=== PATIENT | female | born 1980 | race Caucasian/White ===

== ENCOUNTER → 2023-09-29 11:03 | Outpatient (BNVA) | payer SELFPAY | PROVIDERS: Visit Provider Registered Nurse Neonatal Intensive Care | DX: J02.9 Acute pharyngitis, unspecified (principal) | CPT/HCPCS: 87880 ==

== ENCOUNTER 2023-10-12 21:20 | Emergency (ER) | payer MEDICARE, SELFPAY ==
[2023-10-12 21:21] VITALS: BP 133/84; PULSE 122; RESP 20; TEMP 36.8; O2SAT 97; BMI 51.5
[2023-10-12 21:25] VITALS: BP 126/82; PULSE 104; RESP 13; O2SAT 95
--- NOTE | 2023-10-12 21:32 | ECG_ITS ---
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 Measurements Intervals [place] Rate: 112 P: 28 AR: 153 QRS: 43 QRSD: 94 T: 21 QT: 326 QTc: 446 Interpretive Statements SINUS TACHYCARDIA LOW QRS VOLTAGE IN PRECORDIAL LEADS [QRS DEFLECTION < 1.0 mV IN CHEST LEADS] NONSPECIFIC T-WAVE ABNORMALITY No previous ECG available for comparison Electronically Signed On 10-13-2023 9:09:13 CDT by Prateek Paul M.D. [id number]
[2023-10-12 22:10] VITALS: BP 126/82; PULSE 113; RESP 17; O2SAT 96
[2023-10-12] MEDS: ondansetron 2 mg/ML SDV 2 mL 4 MG IVP (22:11)
[2023-10-12] MEDS: sodium chloride 0.9% 1,000 ML 999 ML IV (22:11)
[2023-10-12 22:40] LABS: Basophils # 0.1 10^3/uL (0.0-0.1); Basophils % 0.3 %; Eosinophils # 0.3 10^3/uL (0.0-0.8); Eosinophils % 1.5 %; Hematocrit 45.6 % (36-47); Lymphocytes # 1.6 10^3/uL (0.8-4.8); Lymphocytes % 7.1 %; Mean Corpuscular HGB Conc 32.5 g/dL (30-55); Mean Corpuscular Hemoglobin 30.8 pg (27-33); Mean Corpuscular Volume 94.8 fl (85-98); Mean Platelet Volume 8.6 fL (7.4-10.4); Monocytes # 1.2 10^3/uL (0.2-0.9); Monocytes % 5.1 %; Neutrophils # 19.41 10^3/uL (1.8-7.7); Neutrophils % 85.5 %; Nucleated Red Blood Cells % 0 %; Platelet Count 339 10^3/cmm (157-399); Red Blood Count 4.81 10^6/uL (3.85-5.65); Red Cell Distribution Width 12.9 % (12.1-15.1); White Blood Count 22.72 10^3/uL (3.29-11.43)
[2023-10-12 22:56] LABS: Alanine Aminotransferase 48 U/L (0-33); Albumin Level 3.7 g/dL (3.5-5.2); Alkaline Phosphatase 89 U/L (35-105); Anion Gap 15.5 (5-19); Aspartate Amino Transferase 26 U/L (0-32); Blood Urea Nitrogen 9 mg/dL (6-20); Calcium 8.2 mg/dL (8.5-10.5); Carbon Dioxide 22 mmol/L (22-29); Chloride 108 mmol/L (98-107); Creatinine Clr Calc Pharmacy 142.7353; Globulin 3.2 g/dL (1.3-4.6); Glomerular Filtration Rate 91.3 mL/min (90-130); Glucose 177 mg/dL (65-115); Lipase 40 U/L (13-60); Osmolality Calculated 295 mOsm/kg (285-295); Potassium 4.5 mmol/L (3.5-5.1); Sodium 141 mmol/L (136-145); Total Bilirubin 0.7 mg/dL (0.15-1.2); Total Protein 6.9 g/dL (6.6-8.7)
--- NOTE | 2023-10-12 23:11 | ED_ITS ---
HPI - Dizziness 2 General: Chief Complaint: Dizziness Stated Complaint: Heat Exhaustion Time Seen by Provider: 10/12/23 21:34 History of Present Illness: HPI Narrative: 42-year-old female presents with some na usea vomiting that started today. She has minor diffuse abdominal cramping and pain. She reports that she was walking to her mother's in the heat when it happened. That is little bit dizzy. She reports that she is not used to the heat and humidity.. Associated symptoms: Reports nausea and vomiting; Denies chest pain, chills, headache(s) or palpitations Review of Systems 2 Const: Denies: fever(s) or chills Card: Denies: chest pain or palpitations Resp: Denies: dyspnea, productive cough or non-productive cough GI: Reports: abdominal pain, nausea and vomiting Skin/Breast: Denies: rash or erythema Neuro: Denies: headache(s) PFSH ED 2 PFSH: Social History Smoking and tobacco/nicotine status: former use of tobacco/nicotine Physical Exam 2 Const: COMMON NORMALS: no acute distress and patient oriented x3 N UTRITIONAL APPEARANCE: obese Resp: COMMON NORMALS: clear to auscultation bilaterally EFFORT & INSPECTION: Yes able to speak in complete sentences AUSCULTATION: clear to auscultation bilaterally Cardio: COMMON NORMALS: regular rhythm RATE: tachycardic RHYTHM: regular rhythm GI: COMMON NORMALS: Soft to palpation PALPATION: Yes Soft to palpation and Yes Tenderness to palpation present (GI) (mild diffuse) Extremity: COMMON NORMALS: normal to inspection and full ROM Neuro: COMMON NORMALS: patient oriented x3, CN's II-XII intact bilaterally, moves all extremities and no focal motor deficits Psych: COMMON NORMALS: mental status grossly normal, Normal thought process present and cooperative THOUGHT PROCESS: Normal thought process present Course 2 Vital Signs: Vital signs: Vital Signs Temperature 98.2 F 10/12/23 21:21 Pulse Rate 94 10/13/23 00:41 Respiratory Rate 18 10/13/23 00:41 Blood Pressure 111/81 10/13/23 00:41 Pulse Oximetry 96 10/13/23 00:41 Oxygen Delivery Me thod Room Air 10/13/23 00:41 MDM - Dizziness Medical Decision Making Patient diagnostics as ordered reviewed and interpreted by me. Patient does have elevated WBC that I think is likely due to heat exhaustion along with multiple episodes of vomiting. Patient feels significantly better following treatment with Zofran and IV fluids. Patient has no specific abdominal discomfort. Patient reports that she has not been out in this heat and humidity that we are currently having and walking and thinks is likely what caused her to have the vomiting. Patient's labs otherwise show no significant acute findings. Patient's urinalysis is nonspecific and we will await culture prior to treating as she is just was recently treated for you UTI. Patient negative for COVID. She is stable and ready to be discharged home. Lab Data 10/12/23 22:30 10/12/23 22:30 Laboratory Results WBC 22.72 10^3/uL (3.29-11.43) H 10/12/23 22:30 RBC 4.81 10^6/uL (3.85-5.65) 10/12/23 22:30 Hgb 14.80 g/dL (11.27-16.99) 10/12/23 22:30 Hct 45.6 % (36-47) 10/12/23 22:30 MCV 94.8 fl (85-98) 10/12/23 22: MCH 30.8 pg (27-33) 10/12/23 22: MCHC 32.5 g/dL (30-55) 10/12/23 22:30 RDW 12.9 % (12.1-15.1) 10/12/23 22:30 Plt Count 339 10^3/cmm (157-399) 10/12/23 22: MPV 8.6 fL (7.4-10.4) 10/12/23 22:30 Neut % (Auto) 85.5 % 10/12/23 22:30 Lymph % (Auto) 7.1 % 10/12/23 22:30 [place] % (Auto) 5.1 % 10/12/23 22:30 Eos % (Auto) 1.5 % 10/12/23 22:30 Baso % (Auto) 0.3 % 10/12/23 22:30 Neut # (Auto) 19.41 10^3/uL (1.8-7.7) H 10/12/23 22:30 Lymph # (Auto) 1.6 10^3/uL (0.8-4.8) 10/12/23 22:30 [place] # (Auto) 1.2 10^3/uL (0.2-0.9) H 10/12/23 22:30 Eos # (Auto) 0.3 10^3/uL (0.0-0.8) 10/12/23 22:30 Baso # (Auto) 0.1 10^3/uL (0.0-0.1) 10/12/23 22:30 Nucleated RBC % (auto) 0 % 10/12/23 22:30 Nucleated RBCs # 0.0 /100WBC 10/12/23 22:30 Sodium 141 mmol/L (136-145) 10/12/23 22:30 Potassium 4.5 mmol/L (3.5-5.1) 10/12/23 22:30 Chloride 108 mmol/L (98-107) H 10/12/23 22:30 Carbon Dioxide 22 mmol/L (22-29) 10/12/23 22:30 Anion Gap 15.5 (5-19) 10/12/23 22:30 BUN 9 mg/dL (6-20) 10/12/23 22:30 Creatinine 0.7 mg/dL (0.5-0.9) 10/12/23 22:30 GFR Calculation 91.3 mL/min (90-130) 10/12/23 22:30 Glucose 177 mg/dL (65-115) H 10/12/23 22:30 Calculated Osmolality 295 mOsm/kg (285-295) 10/12/23 22:30 Calcium 8.2 mg/dL (8.5-10.5) L 10/12/23 22:30 Total Bilirubin 0.7 mg/dL (0.15-1.2) 10/12/23 22:30 AST 26 U/L (0-32) 10/12/23 22:30 ALT 48 U/L (0-33) H 10/12/23 22:30 Alkaline Phosphatase 89 U/L (35-105) 10/12/23 22:30 Total Protein 6.9 g/dL (6.6-8.7) 10/12/23 22:30 Albumin 3.7 g/dL (3.5-5.2) 10/12/23 22:30 Globulin 3.2 g/dL (1.3-4.6) 10/12/23 22:30 Lipase 40 U/L (13-60) 10/12/23 22:30 HCG, Qual Negative (Negative) 10/12/23 23:47 Urine Color Dark yellow (Yellow) A 10/12/23 23:47 Urine Appearance Cloudy (CLEAR) A 10/12/23 23:47 Urine pH 5.5 (5-7) 10/12/23 23:47 Ur Specific [place] 1.029 (1.005-1.030) 10/12/23 23:47 Urine Protein 1+ (Negative) A 10/12/23 23:47 Urine Glucose (UA) Negative (Normal) 10/12/23 23:47 Urine Ketones Trace (Negative) 10/12/23 23:47 Urine Blood Negative (Negative) 10/12/23 23:47 Urine Nitrate Negative (Negative) 10/12/23 23:47 Urine Bilirubin Negative (Negative) 10/12/23 23:47 Urine Urobilinogen 1.0 mg/dL (Negative) 10/12/23 23:47 Ur Leukocyte Esterase Trace (Negative) A 10/12/23 23:47 Urine RBC 0-2 /hpf (0-2) 10/12/23 23:47 Urine WBC 0-5 /hpf (0-5) 10/12/23 23:47 Ur Squamous Epith Cells 11-20 /hpf (0-5) 10/12/23 23:47 Amorphous Sediment Not Reportable 10/12/23 23:47 Urine Bacteria Trace /hpf (NONE) 10/12/23 23:47 Hyaline Casts 0.40 /lpf 10/12/23 23:47 SARS-CoV-2 Ag (Rapid) Negative (Negative) 10/12/23 22:35 All radiology interpretation(s) finalized by discharge EKG Data EKG 1: I personally reviewed and interpreted this EKG as follows: EKG interpretation date: 10/12/23 EKG interpretation time: 21:32 Interpretation: Sinus tachycardia, ventricular rate 112, SD 153, QRS 94, nonspecific changes, no acute ST change elevation noted. Discharge Plan Discharge Patient Disposition: Home Clinical Impression: Heat exhaustion, unspecified, initial encounter Nausea and vomiting Qualifiers: Vomiting type: unspecified Qualified Code(s): R11.2 - Nausea with vomiting, unspecified Condition: Stable Prescriptions: New ondansetron HCl 4 mg tablet 4 mg PO Q8H PRN (Reason: nausea and vomiting) Qty: 20 0RF No Action amoxicillin 875 mg tablet 875 mg PO BID 10 Days Qty: 20 0RF Discharge Orders: Discharge ED (Routine); Ordered 10/13/23 Ordered By: Milton Peraza Discharge Diet: Advance as tolerated Discharge Activity: Increase activity as tolerated Patient Instructions: Heat Exhaustion (ED), Acute Nausea and Vomiting (ED), Opioid Safety, Pain Management Activity Restrictions/Additional Instructions: Please be sure you are drinking plenty of fluids. Advance your diet as tolerated. Be sure you are careful while going down to the heat. Close your primary care provider Monday or Monday for recheck of symptoms. Return to the ER as needed. Coding Level of Care Code ED Home Health Care Case Manager for Kierra Juarez
[2023-10-12 23:15] LABS: SARS Covid-2 Antigen Negative (Negative)
[2023-10-12 23:28] VITALS: BP 150/108; PULSE 100; RESP 16; O2SAT 95
[2023-10-12 23:56] LABS: Charge for UA Resulting for Rev
[2023-10-12 23:59] LABS: Bilirubin Urine Negative (Negative); Blood Urine Negative (Negative); Glucose Urine UA Negative (Normal); Ketones Urine Trace (Negative); Leukocyte Esterase Urine Trace (Negative); Nitrate Urine Negative (Negative); Protein Urine 1+ (Negative); Specific Gravity, Urine 1.029 (1.005-1.030); Urine Appearance Cloudy (CLEAR); Urine Color Dark Yellow (Yellow); pH Urine 5.5 (5-7)
[2023-10-13] LABS: HCG Qualitative Urine. Negative (Negative)
[2023-10-13 00:02] LABS: Bacteria Urine Trace /hpf; RBC Urine 0-2 /hpf (0-2); WBC Urine 0-5 /hpf (0-5)
[2023-10-13 00:41] VITALS: BP 111/81; PULSE 94; RESP 18; O2SAT 96
--- NOTE | 2023-10-13 01:01 | PC.NURSE ---
Pt's mother's caregiver is at bedside. Caregiver has came to the nurses station several times, asking how long it is going to be before they are discharged , because she is in a hurry to get home. Caregiver told that the doctor is working on discharge paperwork and they would be going home soon.
== END 2023-10-13 01:08 | disposition home or self-care (01) ==
PROVIDERS: Emergency Provider Student in an Organized Health Care Education/Training Program
DX: R11.2 Nausea with vomiting, unspecified (principal); T67.5XXA Heat exhaustion, unspecified, initial encounter; X30.XXXA Exposure to excessive natural heat, initial encounter; R00.0 Tachycardia, unspecified; Z11.52 Encounter for screening for COVID-19; Z87.891 Personal history of nicotine dependence
CPT/HCPCS: 36415; 80053; 81003; 81015; 81025; 83690; 85025; 87426; 93005; 96374; 99284; J2405; J7030

== ENCOUNTER 2023-11-23 13:01 | Inpatient (IN) | payer MEDICARE, MEDICAID, SELFPAY ==
[2023-11-23 13:10] VITALS: BP 129/89; PULSE 110; RESP 18; TEMP 36.8; O2SAT 96
--- NOTE | 2023-11-23 13:13 | W.ED.PSYCHS ---
HPI - Psych General: Chief Complaint: Psychiatric Symptoms Stated Complaint: si Time Seen by Provider: 11/23/23 13:02 Source: patient and EMS Mode of arrival: EMS Limitations: no limitations History of Present Illness: 43-year-old female who states that she has been having suicidal ideations. Patient states she has been running low on her meds having increased depression she states she has multiple plans states she just kill herself anyway. Denies any worsening improving factors. Associated symptoms: Reports depression and suicidal ideation Related Data Previous Rx's Medication Instructions Recorded amoxicillin 875 mg tablet 875 mg PO BID 10 days #20 tabs 09/29/23 ondansetron HCl 4 mg tablet 4 mg PO Q8H PRN nausea and 10/13/23 vomiting #20 tabs Allergies Allergy/AdvReac Type Severity Reaction Status Date / Time escitalopram [From Lexapro] Allergy ADR-Nausea Verified 09/29/23 10:57 latex Allergy ALGY-Rash Verified 09/29/23 10:57 eszopiclone [From Lunesta] AdvReac ADR-Migrain Verified 09/29/23 10:57 e lurasidone [From Latuda] AdvReac ADR-Nausea Verified 09/29/23 10:57 trazodone AdvReac ADR-Migrain Verified 09/29/23 10:57 e Review of Systems Const: Denies: fever(s), chills, body aches or change in appetite ENMT: Denies: throat pain or dental pain Card: Denies: chest pain Resp: Denies: dyspnea GI: Denies: abdominal pain, nausea, vomiting or diarrhea Musc: Denies: neck pain or back pain Skin/Breast: Denies: rash Neuro: Denies: headache(s) Psych: Reports: depression and suicidal ideation [facility] ED PFSH: Medical History Alcohol dependence, in remission Social History Smoking and tobacco/nicotine status: former use of tobacco/nicotine Physical Exam Const: COMMON NORMALS: no acute distress, patient oriented x3 and healthy appearing HENMT: COMMON NORMALS: normocephalic and atraumatic HEAD & SCALP: normocephalic and atraumatic Neck/C-Spine: COMMON NORMALS: full ROM and supple Chest: COMMONS NORMALS: normal inspection of the chest Resp: COMMON NORMALS: normal respiratory effort Cardio: COMMON NORMALS: regular rate, regular rhythm and No murmurs present (Cardio) RATE: regular rate RHYTHM: regular rhythm Extremity: COMMON NORMALS: normal to inspection and full ROM Neuro: COMMON NORMALS: patient oriented x3, moves all extremities and no focal motor deficits Psych: COMMON NORMALS: mental status grossly normal, Normal thought process present and cooperative THOUGHT PROCESS: Normal thought process present THOUGHT CONTENT: Yes Suicidality present Skin: COMMON NORMALS: no rashes or lesions noted and no wounds GENERAL SKIN EXAM: no rashes or lesions noted Course Vital Signs: Vital signs: Vital Signs Temperature 98.3 F 11/23/23 13:10 Pulse Rate 110 H 11/23/23 13:10 Respiratory Rate 18 11/23/23 13:10 Blood Pressure 129/89 11/23/23 13:10 Pulse Oximetry 96 11/23/23 13:10 Oxygen Delivery Me thod Room Air 11/23/23 13:10 MDM - Psych Medical Decision Making Patient presents here with suicidal ideations patient's medically cleared did speak to psychiatrist will admit at this time. Medical Records I reviewed the patient's medical records. Lab Data I reviewed the patient's lab results. 11/23/23 13:32 11/23/23 13:32 Laboratory Results WBC 13.89 10^3/uL (3.29-11.43) H 11/23/23 13:32 RBC 4.67 10^6/uL (3.85-5.65) 11/23/23 13:32 Hgb 14.30 g/dL (11.27-16.99) 11/23/23 13:32 Hct 43.5 % (36-47) 11/23/23 13:32 MCV 93.1 fl (85-98) 11/23/23 13:32 MCH 30.6 pg (27-33) 11/23/23 13:32 MCHC 32.9 g/dL (30-55) 11/23/23 13:32 RDW 12.5 % (12.1-15.1) 11/23/23 13:32 Plt Count 346 10^3/cmm (157-399) 11/23/23 13:32 MPV 8.8 fL (7.4-10.4) 11/23/23 13:32 Neut % (Auto) 64.1 % 11/23/23 13:32 Lymph % (Auto) 25.1 % 11/23/23 13:32 [place] % (Auto) 5.7 % 11/23/23 13:32 Eos % (Auto) 3.8 % 11/23/23 13:32 Baso % (Auto) 0.4 % 11/23/23 13:32 Neut # (Auto) 8.91 10^3/uL (1.8-7.7) H 11/23/23 13:32 Lymph # (Auto) 3.5 10^3/uL (0.8-4.8) 11/23/23 13:32 [place] # (Auto) 0.8 10^3/uL (0.2-0.9) 11/23/23 13:32 Eos # (Auto) 0.5 10^3/uL (0.0-0.8) 11/23/23 13:32 Baso # (Auto) 0.1 10^3/uL (0.0-0.1) 11/23/23 13:32 Nucleated RBC % (auto) 0 % 11/23/23 13:32 Nucleated RBCs # 0.0 /100WBC 11/23/23 13:32 No radiology studies performed this visit Discharge Plan Discharge Condition: Stable Prescriptions: No Action amoxicillin 875 mg tablet 875 mg PO BID 10 Days Qty: 20 0RF ondansetron HCl 4 mg tablet 4 mg PO Q8H PRN (Reason: nausea and vomiting) Qty: 20 0RF Coding Level of Care Code ED Ticket Sorter for Dinorahg Ann
[2023-11-23 13:50] LABS: Basophils # 0.1 10^3/uL (0.0-0.1); Basophils % 0.4 %; Eosinophils # 0.5 10^3/uL (0.0-0.8); Eosinophils % 3.8 %; Hematocrit 43.5 % (36-47); Lymphocytes # 3.5 10^3/uL (0.8-4.8); Lymphocytes % 25.1 %; Mean Corpuscular HGB Conc 32.9 g/dL (30-55); Mean Corpuscular Hemoglobin 30.6 pg (27-33); Mean Corpuscular Volume 93.1 fl (85-98); Mean Platelet Volume 8.8 fL (7.4-10.4); Monocytes # 0.8 10^3/uL (0.2-0.9); Monocytes % 5.7 %; Neutrophils # 8.91 10^3/uL (1.8-7.7); Neutrophils % 64.1 %; Nucleated Red Blood Cells % 0 %; Platelet Count 346 10^3/cmm (157-399); Red Blood Count 4.67 10^6/uL (3.85-5.65); Red Cell Distribution Width 12.5 % (12.1-15.1); White Blood Count 13.89 10^3/uL (3.29-11.43)
[2023-11-23 14:05] LABS: Alanine Aminotransferase 44 U/L (0-33); Albumin Level 3.6 g/dL (3.5-5.2); Alkaline Phosphatase 112 U/L (35-105); Aspartate Amino Transferase 46 U/L (0-32); Blood Urea Nitrogen 9 mg/dL (6-20); Carbon Dioxide 23 mmol/L (22-29); Chloride 100 mmol/L (98-107); Globulin 3.4 g/dL (1.3-4.6); Glomerular Filtration Rate 108.6 mL/min (90-130); Glucose 136 mg/dL (65-115); Osmolality Calculated 283 mOsm/kg (285-295); Sodium 136 mmol/L (136-145); Total Bilirubin 0.2 mg/dL (0.15-1.2)
[2023-11-23 14:08] LABS: Acetaminophen < 5.0 ug/mL (10-30); Alcohol Level < 10 mg/dL (0-10); Salicylate < 0.3 mg/dL (3-10)
[2023-11-23 15:00] LABS: HCG Qualitative Urine. Negative (Negative)
[2023-11-23 15:01] LABS: Amphetamines Screen Urine Negative (Negative); Barbiturates Screen Urine Negative (Negative); Benzodiazepines Screen Urine Positive (Negative); Cocaine Screen Urine Negative (Negative); Opiate Screen Urine Negative (Negative); PCP Screen Urine Negative (Negative); THC Screen Urine Negative (Negative)
--- NOTE | 2023-11-23 17:29 | PC.NURSE ---
96 hr rights reviewed with patient @1400 with assistance of [facility] security management specialist Jayson. All education reviewed. No questions or concerns at this time. Patient copy left @bedside with patient. Pt also provided a soda at this time.
[2023-11-23 18:43] VITALS: BP 128/85; PULSE 94; O2SAT 96
[2023-11-23 20:51] VITALS: BP 139/82; PULSE 94; RESP 20; TEMP 36.5; O2SAT 96
[2023-11-24 00:12] VITALS: BP 156/81; PULSE 100; RESP 16; O2SAT 96
[2023-11-24 06:00] VITALS: BP 116/81; PULSE 90; RESP 18; TEMP 36.7; O2SAT 95
[2023-11-24 07:44] LABS: Glucose Point of Care 186 mg/dL (70-110)
[2023-11-24] MEDS: fluoxetine 20 mg Capsule 40 MG PO (08:24)
[2023-11-24] MEDS: pantoprazole DR 40 mg Tablet PO ×2 (08:24→17:10)
[2023-11-24] MEDS: metformin XR 500 MG Tablet 1000 MG PO (08:24)
[2023-11-24] MEDS: cetirizine 10 mg Tablet PO (08:24)
[2023-11-24] MEDS: buPROPion XL (24 HR) 150 mg Tablet 450 MG PO (08:24)
[2023-11-24] MEDS: atorvastatin 40 mg Tablet PO (08:25)
[2023-11-24] MEDS: gabapentin 400 mg Capsule PO ×3 (08:25→21:20)
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
[2023-11-24 14:00] VITALS: BP 146/92; PULSE 87; RESP 20; TEMP 36.6; O2SAT 98
[2023-11-24 16:34] LABS: Glucose Point of Care 118 mg/dL (70-110)
[2023-11-24 16:34] LABS: Glucose Point of Care 200 mg/dL (70-110)
[2023-11-24] MEDS: hyDROXYzine 25 mg Capsule 50 MG PO (17:09)
--- NOTE | 2023-11-24 17:48 | PC.NURSE ---
PRN tiamcinolone and Nystatin cream non admin at this time. Per pt she does not have any rashes at this time.
[2023-11-24 20:51] VITALS: PULSE 86; RESP 18; O2SAT 97
[2023-11-24] MEDS: ipratropium-albuterol 3 mL Neb INHALATION (20:51)
[2023-11-24] MEDS: ropinirole 2 mg Tablet PO (21:19)
[2023-11-24] MEDS: mirtazapine 15 mg Tablet PO (21:19)
[2023-11-24] MEDS: BuSPIRONE 10 mg Tablet PO (21:19)
[2023-11-24] MEDS: OXcarbazepine 300 mg Tablet PO (21:20)
[2023-11-24 22:00] VITALS: BP 145/89; PULSE 112; RESP 20; TEMP 36.9; O2SAT 95
[2023-11-25 06:00] VITALS: BP 137/83; PULSE 97; RESP 18; O2SAT 96
[2023-11-25 08:04] LABS: Glucose Point of Care 232 mg/dL (70-110)
[2023-11-25] MEDS: pantoprazole DR 40 mg Tablet PO ×2 (08:43→18:24)
[2023-11-25] MEDS: cetirizine 10 mg Tablet PO (08:43)
[2023-11-25] MEDS: fluoxetine 20 mg Capsule 40 MG PO (08:43)
[2023-11-25] MEDS: BuSPIRONE 10 mg Tablet PO ×3 (08:43→16:19)
[2023-11-25] MEDS: metformin XR 500 MG Tablet 1000 MG PO (08:44)
[2023-11-25] MEDS: gabapentin 400 mg Capsule PO ×3 (08:44→20:44)
[2023-11-25] MEDS: atorvastatin 40 mg Tablet PO (08:44)
[2023-11-25] MEDS: buPROPion XL (24 HR) 150 mg Tablet 450 MG PO (08:44)
[2023-11-25 08:54] VITALS: PULSE 101; RESP 16; O2SAT 98
[2023-11-25] MEDS: ipratropium-albuterol 3 mL Neb INHALATION (08:56)
[2023-11-25 08:58] VITALS: PULSE 96
--- NOTE | 2023-11-25 09:05 | PC.NURSE ---
Patient rates depression as so-so , says that she has mental health issues. Patient denies suicidal ideation. Patient says that she is new to the area and needs to establish care with behavioral healthcare. Patient reports that she has been off of ozempic for over 1 month.
--- NOTE | 2023-11-25 09:30 | W.PM.NPUPNS ---
Subjective NPU Subjective: Patient presented today reporting that she was doing okay. She reports that she is glad that she got her medications continued and was really stressed about the prospect of having to come off of her medication cold turkey. We discussed working with the social work team on Monday for follow-up plans and discussions about resources in the community. She denied any side effects to the medication. Mental Status Exam MSE Comments: This is an obese versus morbidly obese white female, in hospital scrubs with limited grooming but adequate eye contact. Very poor hygiene with body odor identifiable throughout the interview. No abnormal movements, except for mild psychomotor retardation. Cooperative with exam in mild distress. Speech was mostly decreased rate and volume. Mood described as depressed and anxious; affect congruent and slightly subdued. Thought process, organized. Thought content: patient denied current suicidal or homicidal ideation, there were no delusions reported or noted, patient denied auditory or visual hallucinations. The patient reported high levels of anxiety and has been having suicidal ideations on and off for the past couple of days. The patient denied any current thoughts of self-harm or harm to others. The patient also denied any feelings of paranoia or hallucinations. The patient reported occasional nightmares or flashbacks. The patient's mood was described as a little bit down. She denied any obsessive-compulsive behaviors but likes to keep her house clean and in order. Attention and concentration were intact and memory appeared reliable, but none were formally tested. She was alert and oriented times 3. Insight and judgment appear limited. Impulse control is impaired. Vitals/I&O/Wt Last Vital Signs Temp 98.5 F 11/24/23 22:00 Pulse 96 11/25/23 08:58 Resp 16 11/25/23 08:54 BP 137/83 11/25/23 06:00 Pulse Ox 98 11/25/23 08:54 O2 Del Method Room Air 11/25/23 08:54 Data NPU 11/23/23 13:32 11/23/23 13:32 A&P Assessment and plan (1) Generalized anxiety disorder: (2) History of autism: (3) PTSD (post-traumatic stress disorder): (4) Major depressive disorder, recurrent: Plan This is a 43-year-old white female with a long history of mental health treatment with multiple diagnoses reported with inpatient and outpatient services throughout her life. The patient has a history of ADHD, depression, and autism, with recent suicidal ideations and high levels of anxiety. The patient also exhibits obsessive-compulsive tendencies. The patient has a history of substance use, including tobacco, alcohol, and cannabis, all of which ceased five years ago. The patient is currently living alone and is seeking to continue their current medication regimen. 1. Continue current medications. 2. Continue to-15 minute checks, 3.? Encourage individual, group and milieu therapy. 4.? Work with social work team to ensure connection with local outpatient treatment and follow-up. Involuntary Hold Information 96 Hour Hold: 96 Hour Involuntary Admission: Yes 96 Hour Hold Ending Date: 11/29/23 96 Hour Hold Ending Time: 13:15 Attestations NPU Medical Necessity Statement*: Inpatient hospitalization is medically necessary and the clinically appropriate intervention, at this time. We will monitor medications and make changes as indicated. Likely length of stay is 3-5 days. Coding Level of Care Code Acute Code for [facility] Fwd Diagnoses Generalized anxiety disorder F41.1 History of autism Z86.59 PTSD (post-traumatic stress disorder) F43.10 Major depressive disorder, recurrent F33.9
[2023-11-25] MEDS: acetaminophen 325 mg Tablet 650 MG PO (10:10)
[2023-11-25 11:29] LABS: Glucose Point of Care 177 mg/dL (70-110)
[2023-11-25 14:00] VITALS: BP 131/91; PULSE 106; RESP 18; TEMP 36.9; O2SAT 97
[2023-11-25] MEDS: OZEMPIC 0.25 MG 1 EACH XX (17:01)
[2023-11-25 17:26] LABS: Glucose Point of Care 131 mg/dL (70-110)
[2023-11-25] MEDS: ibuprofen 600 mg Tablet PO (20:42)
[2023-11-25] MEDS: OXcarbazepine 300 mg Tablet PO (20:44)
[2023-11-25] MEDS: BuSPIRONE 10 mg Tablet 20 MG PO (20:44)
[2023-11-25] MEDS: mirtazapine 15 mg Tablet PO (20:44)
[2023-11-25] MEDS: ropinirole 2 mg Tablet PO (20:44)
[2023-11-25 21:53] VITALS: BP 120/80; PULSE 100; RESP 18; TEMP 36.7; O2SAT 97
[2023-11-26 06:00] VITALS: BP 118/70; PULSE 90; RESP 18; TEMP 36.7; O2SAT 95
[2023-11-26 07:51] LABS: Glucose Point of Care 186 mg/dL (70-110)
[2023-11-26] MEDS: BuSPIRONE 10 mg Tablet 20 MG PO ×3 (08:25→20:23)
[2023-11-26] MEDS: pantoprazole DR 40 mg Tablet PO ×2 (08:25→17:02)
[2023-11-26] MEDS: metformin XR 500 MG Tablet 1000 MG PO (08:25)
[2023-11-26] MEDS: atorvastatin 40 mg Tablet PO (08:25)
[2023-11-26] MEDS: buPROPion XL (24 HR) 150 mg Tablet 450 MG PO (08:25)
[2023-11-26] MEDS: gabapentin 400 mg Capsule PO ×3 (08:25→20:23)
[2023-11-26] MEDS: cetirizine 10 mg Tablet PO (08:26)
[2023-11-26] MEDS: fluoxetine 20 mg Capsule 40 MG PO (08:26)
[2023-11-26 09:02] VITALS: PULSE 102; RESP 16; O2SAT 98
[2023-11-26] MEDS: ipratropium-albuterol 3 mL Neb INHALATION (09:02)
[2023-11-26 12:18] LABS: Glucose Point of Care 184 mg/dL (70-110)
[2023-11-26 14:00] VITALS: BP 119/83; PULSE 110; RESP 17; TEMP 36.7; O2SAT 96
[2023-11-26 16:57] LABS: Glucose Point of Care 174 mg/dL (70-110)
[2023-11-26] MEDS: acetaminophen 325 mg Tablet 650 MG PO (17:02)
--- NOTE | 2023-11-26 19:12 | P.NPUPN_ITS ---
Subjective NPU 2 Subjective: Patient presented today reporting that she is feeling better. She reports being glad she came to the hospital but endorsed that her only anxiety now is about making sure she is able to get connected with services. We discussed the fact that the treatment team would be back tomorrow and they would be able to work with her on getting appropriate services prior to discharge. Discussed the possibility of discharge tomorrow but hopefully in the next 48 hours. She denied any side effects to her medication. Mental Status Exam 2 MSE Comments: This is an obese versus morbidly obese white female, in hospital scrubs with improving grooming but adequate eye contact. Much improved hygiene. No abnormal movements, except for mild psychomotor retardation. Cooperative with exam in mild distress. Speech was more normal rate and volume. Mood described as better; affect congruent and less ubdued. Thought process, organized. Thought content: patient denied current suicidal or homicidal ideation, there were no delusions reported or noted, patient denied auditory or visual hallucinations. The patient denied any current thoughts of self-harm or harm to others. The patient reported occasional nightmares or flashbacks. Attention and concentration were intact and memory appeared reliable, but none were formally tested. She was alert and oriented times 3. Insight and judgment appear limited. Impulse control is improving. Vitals/I&O/Wt Last Vital Signs Temp 98.1 F 11/26/23 14:00 Pulse 110 H 11/26/23 14:00 Resp 17 11/26/23 14:00 BP 119/83 11/26/23 14:00 Pulse Ox 96 11/26/23 14:00 O2 Del Method Room Air 11/26/23 09:02 Weight last 48 hrs Weight 133.356 kg Weight 135.171 kg Data NPU 11/23/23 13:32 11/23/23 13:32 A&P Assessment and plan (1) Generalized anxiety disorder: (2) History of autism: (3) PTSD (post-traumatic stress disorder): (4) Major depressive disorder, recurrent: Plan This is a 43-year-old white female with a long history of mental health treatment with multiple diagnoses reported with inpatient and outpatient services throughout her life. The patient has a history of ADHD, depression, and autism, with recent suicidal ideations and high levels of anxiety. The patient also exhibits obsessive-compulsive tendencies. The patient has a history of substance use, including tobacco, alcohol, and cannabis, all of which ceased five years ago. The patient is currently living alone and is seeking to continue their current medication regimen. 1. Continue current medications. 2. Continue to-15 minute checks, 3.? Encourage individual, group and milieu therapy. 4.? Work with social work team to ensure connection with local outpatient treatment and follow-up. Likely discharge in the next 48 hours. Involuntary Hold Information 2 96 Hour Hold: 96 Hour Involuntary Admission: Yes 96 Hour Hold Ending Date: 11/29/23 96 Hour Hold Ending Time: 13:15 Attestations NPU 2 Medical Necessity Statement*: Inpatient hospitalization is medically necessary and the clinically appropriate intervention, at this time. We will monitor medications and make changes as indicated. Likely length of stay is 1-3 days. Coding Level of Care Code Acute Code for g Fwd Diagnoses Generalized anxiety disorder F41.1 History of autism Z86.59 PTSD (post-traumatic stress disorder) F43.10 Major depressive disorder, recurrent F33.9
[2023-11-26 20:05] VITALS: BP 115/71; PULSE 95; RESP 18; TEMP 36.7; O2SAT 97
[2023-11-26] MEDS: mirtazapine 15 mg Tablet PO (20:23)
[2023-11-26] MEDS: ropinirole 2 mg Tablet PO (20:23)
[2023-11-26] MEDS: OXcarbazepine 300 mg Tablet PO (20:23)
[2023-11-26] MEDS: ibuprofen 600 mg Tablet PO (20:25)
[2023-11-27 06:00] VITALS: BP 104/67; PULSE 93; RESP 17; TEMP 36.6; O2SAT 98
[2023-11-27 07:45] LABS: Glucose Point of Care 214 mg/dL (70-110)
[2023-11-27] MEDS: gabapentin 400 mg Capsule PO ×3 (08:01→20:39)
[2023-11-27] MEDS: atorvastatin 40 mg Tablet PO (08:02)
[2023-11-27] MEDS: buPROPion XL (24 HR) 150 mg Tablet 450 MG PO (08:02)
[2023-11-27] MEDS: metformin XR 500 MG Tablet 1000 MG PO (08:02)
[2023-11-27] MEDS: cetirizine 10 mg Tablet PO (08:02)
[2023-11-27] MEDS: fluoxetine 20 mg Capsule 40 MG PO (08:02)
[2023-11-27] MEDS: BuSPIRONE 10 mg Tablet 20 MG PO ×3 (08:02→20:39)
[2023-11-27] MEDS: pantoprazole DR 40 mg Tablet PO ×2 (08:04→17:36)
[2023-11-27 11:44] LABS: Glucose Point of Care 168 mg/dL (70-110)
[2023-11-27 12:30] VITALS: PULSE 108; RESP 18; O2SAT 98
[2023-11-27] MEDS: ipratropium-albuterol 3 mL Neb INHALATION (12:30)
[2023-11-27 12:38] VITALS: PULSE 113
[2023-11-27 14:00] VITALS: BP 152/97; PULSE 104; RESP 19; TEMP 36.3; O2SAT 96
--- NOTE | 2023-11-27 18:22 | P.NPUPN_ITS ---
Subjective NPU 2 Subjective: Patient presented today reporting that she had an opportunity to talk to social work team and they are working on getting appointments and resources in place. They did not get some calls back and we discussed making sure she has these things in place prior to discharge. We discussed the plan for discharge tomorrow and she denied any side effects to the medication. Mental Status Exam 2 MSE Comments: This is an obese versus morbidly obese white female, in hospital scrubs with improving grooming but adequate eye contact. Much improved hygiene. No abnormal movements, except for mild psychomotor retardation. Cooperative with exam in mild distress. Speech was more normal rate and volume. Mood described as better; affect congruent and less ubdued. Thought process, organized. Thought content: patient denied current suicidal or homicidal ideation, there were no delusions reported or noted, patient denied auditory or visual hallucinations. The patient denied any current thoughts of self-harm or harm to others. The patient reported occasional nightmares or flashbacks. Attention and concentration were intact and memory appeared reliable, but none were formally tested. She was alert and oriented times 3. Insight and judgment appear limited. Impulse control is improving. Vitals/I&O/Wt Last Vital Signs Temp 98.1 F 11/27/23 19:57 Pulse 100 11/27/23 19:57 Resp 18 11/27/23 19:57 BP 146/89 11/27/23 19:57 Pulse Ox 95 11/27/23 19:57 O2 Del Method Room Air 11/27/23 12:30 Weight last 48 hrs Weight 133.356 kg Data NPU 11/23/23 13:32 11/23/23 13:32 A&P Assessment and plan (1) Generalized anxiety disorder: (2) History of autism: (3) PTSD (post-traumatic stress disorder): (4) Major depressive disorder, recurrent: Plan This is a 43-year-old white female with a long history of mental health treatment with multiple diagnoses reported with inpatient and outpatient services throughout her life. The patient has a history of ADHD, depression, and autism, with recent suicidal ideations and high levels of anxiety. The patient also exhibits obsessive-compulsive tendencies. The patient has a history of substance use, including tobacco, alcohol, and cannabis, all of which ceased five years ago. The patient is currently living alone and is seeking to continue their current medication regimen. 1. Continue current medications. 2. Continue to-15 minute checks, 3.? Encourage individual, group and milieu therapy. 4.? Work with social work team to ensure connection with local outpatient treatment and follow-up. Plan for discharge tomorrow. Involuntary Hold Information 2 96 Hour Hold: 96 Hour Involuntary Admission: Yes 96 Hour Hold Ending Date: 11/29/23 96 Hour Hold Ending Time: 13:15 Attestations NPU 2 Medical Necessity Statement*: Inpatient hospitalization is medically necessary and the clinically appropriate intervention, at this time. We will monitor medications and make changes as indicated. Likely length of stay is 1 day. Coding Level of Care Code Acute Code for g Fwd Diagnoses Generalized anxiety disorder F41.1 History of autism Z86.59 PTSD (post-traumatic stress disorder) F43.10 Major depressive disorder, recurrent F33.9
[2023-11-27 19:57] VITALS: BP 146/89; PULSE 100; RESP 18; TEMP 36.7; O2SAT 95
[2023-11-27 20:04] LABS: Glucose Point of Care 210 mg/dL (70-110)
[2023-11-27] MEDS: OXcarbazepine 300 mg Tablet PO (20:39)
[2023-11-27] MEDS: ropinirole 2 mg Tablet PO (20:39)
[2023-11-27] MEDS: mirtazapine 15 mg Tablet PO (20:39)
[2023-11-28 06:00] VITALS: BP 120/83; PULSE 89; RESP 18; TEMP 36.9; O2SAT 98
[2023-11-28] MEDS: cetirizine 10 mg Tablet PO (07:42)
[2023-11-28] MEDS: buPROPion XL (24 HR) 150 mg Tablet 450 MG PO (07:43)
[2023-11-28] MEDS: fluoxetine 20 mg Capsule 40 MG PO (07:43)
[2023-11-28] MEDS: atorvastatin 40 mg Tablet PO (07:43)
[2023-11-28] MEDS: metformin XR 500 MG Tablet 1000 MG PO (07:44)
[2023-11-28] MEDS: BuSPIRONE 10 mg Tablet 20 MG PO ×3 (07:44→21:29)
[2023-11-28] MEDS: gabapentin 400 mg Capsule PO ×3 (07:44→21:29)
[2023-11-28 07:57] LABS: Glucose Point of Care 201 mg/dL (70-110)
[2023-11-28 08:35] VITALS: PULSE 101; RESP 18; O2SAT 97
[2023-11-28] MEDS: ipratropium-albuterol 3 mL Neb INHALATION (08:35)
[2023-11-28] MEDS: pantoprazole DR 40 mg Tablet PO ×2 (09:30→17:21)
[2023-11-28 12:36] LABS: Glucose Point of Care 204 mg/dL (70-110)
[2023-11-28 14:00] VITALS: BP 154/94; PULSE 98; RESP 17; TEMP 36.7; O2SAT 98
[2023-11-28 14:57] VITALS: PULSE 101; RESP 18; O2SAT 97
--- NOTE | 2023-11-28 16:00 | P.NPUDS_ITS ---
Diagnoses at Discharge Discharge Diagnosis (1) Generalized anxiety disorder: Status: Acute (2) History of autism: Status: Acute (3) PTSD (post-traumatic stress disorder): Status: Acute (4) Major depressive disorder, recurrent: Status: Acute Reason for Visit Reason for Visit: si Hospital Course Hospital Course Lot [id number] 12/2023 [id number] Involuntary Hold Information 96 Hour Hold: 96 Hour Involuntary Admission: Yes 96 Hour Hold Ending Date: 11/29/23 96 Hour Hold Ending Time: 13:15 Mental Status Exam MSE Comments: This is an obese versus morbidly obese white female, in hospital scrubs with improving grooming but adequate eye contact. Much improved hygiene. No abnormal movements, except for mild psychomotor retardation. Cooperative with exam in mild distress. Speech was more normal rate and volume. Mood described as better; affect congruent and less ubdued. Thought process, organized. Thought content: patient denied current suicidal or homicidal ideation, there were no delusions reported or noted, patient denied auditory or visual hallucinations. The patient denied any current thoughts of self-harm or harm to others. The patient reported occasional nightmares or flashbacks. Attention and concentration were intact and memory appeared reliable, but none were formally tested. She was alert and oriented times 3. Insight and judgment appear limited. Impulse control is improving. Discharge Data Studies Completed and Pending: Laboratory Results WBC 13.89 10^3/uL (3. 29-11.43) H 11/23/23 13:32 RBC 4.67 10^6/uL (3.8 5-5.65) 11/23/23 13:32 Hgb 14.30 g/dL (11.27 -16.99) 11/23/23 13:32 Hct 43.5 % (36-47) 11/23/23 13:32 MCV 93.1 fl (85-98) 11/23/23 13:32 MCH 30.6 pg (27-33) 11/23/23 13:32 MCHC 32.9 g/dL (30-55) 11/23/23 13:32 RDW 12.5 % (12.1-15.1 ) 11/23/23 13:32 Plt Count 346 10^3/cmm (157 -399) 11/23/23 13:32 MPV 8.8 fL (7.4-10.4) 11/23/23 13:32 Neut % (Auto) 64.1 % 11/23/23 13:32 Lymph % (Auto) 25.1 % 11/23/23 13:32 [place] % (Auto) 5.7 % 11/23/23 13:32 Eos % (Auto) 3.8 % 11/23/23 13:32 Baso % (Auto) 0.4 % 11/23/23 13:32 Neut # (Auto) 8.91 10^3/uL (1.8 -7.7) H 11/23/23 13:32 Lymph # (Auto) 3.5 10^3/uL (0.8- 4.8) 11/23/23 13:32 [place] # (Auto) 0.8 10^3/uL (0.2- 0.9) 11/23/23 13:32 Eos # (Auto) 0.5 10^3/uL (0.0- 0.8) 11/23/23 13:32 Baso # (Auto) 0.1 10^3/uL (0.0- 0.1) 11/23/23 13:32 Nucleated RBC % (a uto) 0 % 11/23/23 13:32 Nucleated RBCs # 0.0 /100WBC 11/23/23 13:32 Sodium 136 mmol/L (136-1 45) 11/23/23 13:32 Potassium 4.0 mmol/L (3.5-5 .1) 11/23/23 13:32 Chloride 100 mmol/L (98-10 7) 11/23/23 13:32 Carbon Dioxide 23 mmol/L (22-29) 11/23/23 13:32 Anion Gap 17.0 (5-19) 11/23/23 13:32 BUN 9 mg/dL (6-20) 11/23/23 13:32 Creatinine 0.6 mg/dL (0.5-0. 9) 11/23/23 13:32 GFR Calculation 108.6 mL/min (90- 130) 11/23/23 13:32 Glucose 136 mg/dL (65-115 ) H 11/23/23 13:32 POC Glucose 204 mg/dL (70-110 ) H 11/28/23 12:10 Calculated Osmolal ity 283 mOsm/kg (285- 295) L 11/23/23 13:32 Calcium 9.0 mg/dL (8.5-10 .5) 11/23/23 13:32 Total Bilirubin 0.2 mg/dL (0.15-1 .2) 11/23/23 13:32 AST 46 U/L (0-32) H 11/23/23 13:32 ALT 44 U/L (0-33) H 11/23/23 13:32 Alkaline Phosphata se 112 U/L (35-105) H 11/23/23 13:32 Total Protein 7.0 g/dL (6.6-8.7 ) 11/23/23 13:32 Albumin 3.6 g/dL (3.5-5.2 ) 11/23/23 13:32 Globulin 3.4 g/dL (1.3-4.6 ) 11/23/23 13:32 HCG, Qual Negative (Negati ve) 11/23/23 14:20 Salicylates < 0.3 mg/dL (3-10 ) L 11/23/23 13:32 Urine Opiates Scre en Negative ng/mL (N egative) 11/23/23 14:20 Acetaminophen < 5.0 ug/mL (10-3 0) L 11/23/23 13:32 Ur Barbiturates Sc reen Negative ng/mL (N egative) 11/23/23 14:20 Ur Phencyclidine S crn Negative ng/mL (N egative) 11/23/23 14:20 Ur Amphetamines Sc reen Negative ng/mL (N egative) 11/23/23 14:20 U Benzodiazepines Scrn Positive ng/mL (N egative) H 11/23/23 14:20 Urine Cocaine Scre en Negative ng/mL (N egative) 11/23/23 14:20 U Marijuana (THC) Screen Negative ng/mL (N egative) 11/23/23 14:20 Ethyl Alcohol < 10 mg/dL (0-10) 11/23/23 13:32 Vitals: Last Vital Signs Temp 98.5 F 11/28/23 06:00 Pulse 101 H 11/28/23 14:57 Resp 18 11/28/23 14:57 BP 120/83 11/28/23 06:00 Pulse Ox 97 11/28/23 14:57 O2 Del Method Room Air 11/28/23 08:35 Discharge Plan Discharge Patient Disposition: Home Condition: Stable Prescriptions: New buspirone 10 mg Tablet 20 mg PO TID 30 Days Qty: 180 1RF Continued sumatriptan succinate 50 mg tablet See Rx Instructions .ROUTE .COMPLEX Rx Instructions: TAKE ONE TABLET BY MOUTH at ONSET of HEADACHE FOR migraine, MAY REPEAT in 2 hours if needed. max of 4 tablets in 24 hours. triamcinolone acetonide 0.1 % cream See Rx Instructions .ROUTE .COMPLEX Rx Instructions: Apply thin layer TO groin folds NEEDED FOR ITCHING; do not USE FOR more THAN 2 WEEKS PER episodes. nystatin 100,000 unit/gram cream See Rx Instructions .ROUTE .COMPLEX Rx Instructions: Apply thin layer TO groin fold every night at bedtime. Rexulti 1 mg tablet 1 mg PO DAILY Emgality Pen 120 mg/mL pen injector 120 mg SUBCUT .Q28D Ozempic 1 mg/dose (4 mg/3 mL) pen injector 1 mg SUBCUT Q7D fluoxetine 40 mg capsule 40 mg PO DAILY 30 Days Qty: 30 1RF cetirizine 10 mg tablet 10 mg PO .@9AM 30 Days Qty: 30 1RF gabapentin 400 mg capsule 400 mg PO TID 30 Days Qty: 90 1RF oxcarbazepine 300 mg tablet 300 mg PO BEDTIME 30 Days Qty: 30 1RF omeprazole 40 mg capsule,delayed release(DR/EC) 40 mg PO BID 30 Days Qty: 60 1RF ropinirole 2 mg tablet 2 mg PO BEDTIME 30 Days Qty: 30 1RF mirtazapine 15 mg tablet 15 mg PO BEDTIME 30 Days Qty: 30 1RF metformin 500 mg tablet extended release 24 hr 1,000 mg PO .@9AM 30 Days Qty: 60 1RF rosuvastatin 10 mg tablet 10 mg PO DAILY 30 Days Qty: 30 1RF bupropion HCl 150 mg tablet extended release 24 hr 450 mg PO DAILY 30 Days Qty: 90 1RF Discontinued buspirone 10 mg tablet 10 mg PO TID Discharge Orders: Discharge Order (Routine); Ordered 11/28/23 Ordered By: Gael Godfrey Referrals: [facility] [Other] - 12/11/23 1:40 pm [facility] [Outside] - 11/30/23 2:30 pm (Initial assessment for services at [facility] in [place] with Gina Doty by Zoom) Discharge Diet: Diabetic Discharge Activity: Resume usual activity Patient Instructions: PTSD (Post Traumatic Stress Disorder) (DC), Suicide Prevention (DC), Opioid Safety Discharge Attestations NPU Time Spent in Discharge Care*: less than 30 min Specific Discharge Activities: Specific discharge activities: educating patient, discussing with patient case manager/social workers/dc planners, documenting/other paperwork and evaluating patient/reviewing data Coding Level of Care Code Acute Code for Chg Fwd Diagnoses Generalized anxiety disorder F41.1 History of autism Z86.59 PTSD (post-traumatic stress disorder) F43.10 Major depressive disorder, recurrent F33.9
[2023-11-28 20:26] VITALS: BP 124/81; PULSE 96; RESP 18; TEMP 36.7; O2SAT 96
[2023-11-28] MEDS: ropinirole 2 mg Tablet PO (21:29)
[2023-11-28] MEDS: OXcarbazepine 300 mg Tablet PO (21:29)
--- NOTE | 2023-11-28 21:33 | PC.NURSE ---
Pt being discharged soon and did not want to take her night time dose of mirtazapine 15mg. All other night medications were administered. Physician notified
[2023-11-28 22:01] VITALS: BP 124/81; PULSE 96; RESP 18; TEMP 36.7; O2SAT 96
== END 2023-11-28 21:49 | disposition home or self-care (01) | DRG 880 ==
LOC: ER 13:34 → ER IP 14:21 → NP 20:38
PROVIDERS: Admitting Provider Psychiatry & Neurology Psychiatry; Emergency Provider Emergency Medicine; Visit Provider Psychiatry & Neurology Psychiatry
DX: F41.1 Generalized anxiety disorder (principal); F33.9 Major depressive disorder, recurrent, unspecified; R45.851 Suicidal ideations; Z68.43 Body mass index [BMI] 50.0-59.9, adult; J45.909 Unspecified asthma, uncomplicated; K21.9 Gastro-esophageal reflux disease without esophagitis; F90.9 Attention-deficit hyperactivity disorder, unspecified type; F84.0 Autistic disorder; F10.21 Alcohol dependence, in remission; F12.91 Cannabis use, unspecified, in remission; E66.01 Morbid (severe) obesity due to excess calories; F43.10 Post-traumatic stress disorder, unspecified; Z79.85 Long-term (current) use of injectable non-insulin antidiabetic drugs; Z91.51 Personal history of suicidal behavior; Z87.891 Personal history of nicotine dependence
CPT/HCPCS: 36415; 36416; 80053; 80306; 80307; 81025; 82962; 85025; 94640; 97150; 97165; 99285

== ENCOUNTER → 2023-12-25 10:52 | Outpatient (BNVA) | payer MEDICARE, MEDICAID, SELFPAY | PROVIDERS: PCP Nurse Practitioner Family; Visit Provider Nurse Practitioner Family | DX: E11.9 Type 2 diabetes mellitus without complications (principal); F41.1 Generalized anxiety disorder | CPT/HCPCS: 80053; 80061; 83036; 84443; 85025 ==

== ENCOUNTER → 2024-01-09 09:00 | Outpatient (BNVA) | payer MEDICARE, MEDICAID, SELFPAY | PROVIDERS: PCP Nurse Practitioner Family; Visit Provider Podiatrist Foot & Ankle Surgery | DX: E11.42 Type 2 diabetes mellitus with diabetic polyneuropathy (principal); M21.6X1 Other acquired deformities of right foot; M21.6X2 Other acquired deformities of left foot; L85.3 Xerosis cutis | CPT/HCPCS: 99203 ==

== ENCOUNTER 2024-06-26 11:00 | Outpatient (CLI) | payer MEDICARE, MEDICAID, SELFPAY ==
[2024-03-22 11:46] VITALS: BP 154/101; BMI 53.2
--- NOTE | 2024-06-26 11:00 | MM_ITS ---
WS: [id number] BILATERAL SCREENING DIGITAL TOMOSYNTHESIS MAMMOGRAM WITH CAD HISTORY: SCREENING COMPARISON: 05/24/2023, 05/26/2023 Bilateral CC and MLO views with tomosynthesis and synthetic mammography submitted. Computer aided detection analyzed. Breast composition: There are scattered areas of fibroglandular density. No suspicious masses, microcalcifications or architectural distortion. Scattered calcifications remain within the LEFT breast. There is a biopsy clip in the medial LEFT breast. No new mass or worsening calcifications. MM/MM scr BI tomosynthesis [id number] IMPRESSION: BI-RADS: 2 - Benign. FOLLOW UP: 1 Year Follow-up
== END 2024-06-26 11:01 | disposition home or self-care (01) ==
LOC: MOBLMAM 11:02
PROVIDERS: PCP Nurse Practitioner Family; Visit Provider Nurse Practitioner Family
DX: Z12.31 Encounter for screening mammogram for malignant neoplasm of breast (principal); R92.323 Mammographic fibroglandular density, bilateral breasts; R92.1 Mammographic calcification found on diagnostic imaging of breast
CPT/HCPCS: 77063; 77067

== ENCOUNTER → 2024-07-09 08:41 | Outpatient (BNVA) | payer MEDICARE, MEDICAID, SELFPAY ==
[2024-03-22 11:46] VITALS: BP 154/101; BMI 53.2
== END ==
PROVIDERS: PCP Nurse Practitioner Family; Visit Provider Podiatrist Foot & Ankle Surgery
DX: G62.9 Polyneuropathy, unspecified (principal); M21.6X1 Other acquired deformities of right foot; M21.6X2 Other acquired deformities of left foot; L85.3 Xerosis cutis; E11.42 Type 2 diabetes mellitus with diabetic polyneuropathy; Z79.84 Long term (current) use of oral hypoglycemic drugs
CPT/HCPCS: 99213

== ENCOUNTER 2024-09-25 11:05 | Inpatient (IN) | payer OTHER, SELFPAY ==
--- OUTSIDE RECORDS SUMMARY | 2004-02-27 03:30 | XMS_ITS | Continuity of Care Document ---
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 [facility] [place], [place], [id number], [place]. tel:[phone] Family History Family Member Type Diagnosis Age At Onset No Information Payers Payer name Insurance type Covered green party ID Authoriza tion(s) No Information Social History Type Description Quantity Date Captured Comments Sex Female Smoking Status No Information Chief Complaint And Reason For Visit No Information Reason For Referral Reason For Referral No Information History Of Present Illness Encounter Date Complaint History Of Prese nt Illness No Information Functional Status Date Functional Assessmen t No Information Instructions Date Instruction Additional Infor mation No Information Assessments Type Assessment Date No Information Patient Care Teams Name Effective Dates (start - stop) Status Members No Information
--- OUTSIDE RECORDS SUMMARY | 2004-02-27 03:30 | XMS_ITS | Continuity of Care Document ---
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, [address] [place] [address], [id number], [place] tel:[phone] [facility] No Information Dayron Ibrahim. [facility] [place], [place], [id number], [place]. tel:[phone] Family History Family Member Type Diagnosis Age [...]
--- OUTSIDE RECORDS SUMMARY | 2021-07-16 06:00 | XMS_ITS | Continuity of Care Document ---
Author Organization [facility] Address [address] [address] [place] [address] Phone Care Team Providers Care Betting Clerks Name Role Phone Florentin Monroe Unavailable Unavailable Allergies, Adverse Reactions, Alerts Substance Reaction Status Criticality adhesive tape Rash Active No Information latex Rash Active No Information eszopiclone Headache Active No Information ESCITALOPRAM OXALATE ADVERSE Active No Info rmation WARNIN allergy(ies) could not be collected because the type is not supported. Please contact the source practice for further details. Medications Medication Instructions Dosage Effective Dates (start - stop) Status Comments Diflucan 100 mg tablet take 1 tablet by oral route every day for 7 days - Active bupropion HCl XL 150 mg 24 hr tablet, extended release take 3 tablet by oral route every day 450 MG - Active omeprazole 40 mg capsule,delayed release take 1 capsule by oral route 2 times every day before a meal 40 MG - Active naproxen 500 mg tablet take 1 tablet by oral route 2 times every day as needed 500 MG - Active oxcarbazepine 300 mg tablet take 1 tablet by oral route 2 times every day 300 MG - Active montelukast 10 mg tablet take 1 tablet by oral route every day in the evening 10 MG - Active gabapentin 300 mg capsule take 1 Capsule by ORAL route 2 times every day 300 MG - Active ropinirole 2 mg tablet take 2 Tablet by oral route 3 times every day 4 MG - Active buspirone 30 mg tablet take 1.5 tablet b y oral route every day 45 MG - Active aspirin 81 mg tablet,delayed release take 1 tablet by oral route every day 81 MG - Active Zyrtec 10 mg tablet take 1 tablet by ora l route every day as needed 10 MG - Active multivitamin Tab Take 1 tablet by mouth daily - Active ProAir HFA 90 mcg/Actuation Aerosol Inhaler as needed - Active Procedures Procedure Date Established Level 4 Established Level 3 Ugi Endo; W/bx 1/mx Established Level 4 or 25-39 min 2019 Ultrasound, Abdominal, Complete 015 Offic/outpt E&m New Mod-hi Routine Serum Collection Bld Ct; Hg/pltlt Ct Auto/compl 15 Sed Rate, Erythrocyte; Auto C-reactive Prot Comp Metabolic Panel Offic/outpt E&m Estab Low-mod 1 G8447 1036F G8417 Offic/outpt E&m Estab Mod-hi 2 10 Routine Serum Collection G8447 Offic/outpt E&m Estab Low-mod 0 Routine Serum Collection G8447 Ugi Endo; Dx W/wo Collec Specm 10 Offic/outpt E&m Estab Mod-hi 2 10 Routine Serum Collection G8447 Ugi Endo; W/endo Untrasound Ex 08 Offic Cons New/estab Mod-hi 60 08 Advance Directives Directive Yes / No Effective Date File Name No Information Encounters Encounter Description Practice Location Reason(s) For Visit Diagnoses Date Provider Providers Copied on Encounter [facility] [address] [address], [place], [id number], [place] tel:[phone] [facility] No Information 2 Mcgregor FIDEL Florentin. [address] [facility] [address], [place], [place], [id number], [place]. tel:[phone] Established Level 4 [facility], [address] [address], [place], [place], [id number], [place] tel:[phone] [facility] GI Symptoms or Concerns (chief complaint) Elevated LFTs Jun-0 - 2 Mcgregor PAC Florentin. [address] [facility] [address], [place], [place], [id number], [place]. [phone] [facility], [address] [address], [place], [place], [id number], [place] tel:[phone] [facility] No Information 2 Buzz Mobley. [address] [facility], [address], [id number], [place]. tel:[phone] Established Level [address] [facility], [address] [address], [place], [id number], [place] tel:[phone] [facility] GI Symptoms or Concerns (chief complaint) Gastroesopha geal reflux disease, unspecified whether esophagitis present 1 Ranjit Fang. [address] [facility] [address], [place], [id number], [place]. tel:[phone] Referring Provider: Referral Self, USE FOR SELF REFERRALS. [facility], [address] [address], [place], [id number], [place] tel:[phone] [facility] No Information 1 Stanton Rios. [address] [facility] [address], [place], [id number], [place]. tel:[phone] [facility], [address] [address], [place], [id number], [place] tel:[phone] [facility] No Information 1 Stanton Rios. [address] [facility] [address], [place], [id number], [place]. [phone] [facility], [address] [address], [place], [id number], [place] tel:[phone] [facility] No Information 1 Buzz Mobley. [address] [facility] [address], [place], [place], [id number], [place]. [phone] Established Level 4 or 25-39 min [facility], [address] [address], [place], [id number], [place] tel:[phone] [facility] GI Symptoms or Concerns (chief complaint) Gastroesopha geal reflux disease, unspecified whether esophagitis present 0 Ranjit Fang. [address] [facility] [address], [place], [place], [id number], [place]. [phone] [facility], [address] [address], [place], [id number], [place] tel:[phone] No Information 0 No Information [facility], [address] [address], [place], [id number], [place] tel:[phone] [facility] No Information 5 No Information Offic/outpt E&m New Mod-hi [facility], [address] [address], [place], [id number], [place] tel:[phone] [facility] GI Symptoms or Concerns (chief complaint) Chronic diarrheaRUQ PainGastropa resisGastroe sophageal RefluxDietar y Surveil/coun selRight upper quadrant painGastropa resisDietary counseling and surveillance Gastro-esoph ageal reflux disease without esophagitisD iarrhea, unspecified 5 No Information Offic/outpt E&m Estab Low-mod [facility], [address] [address], [place], [id number], [place] tel:[phone] [facility] Gastroparesis (chief complaint) Gastroparesi s 1 No Information Referring Provider: Tonya Harris, [address] [place] [address], [address] . tel:[phone] Offic/outpt E&m Estab Mod-hi [address] [facility], [address] [address], [place], [id number], [place] tel:[phone] [facility] Abdominal pain (chief complaint) Gastroparesi s 0 No Information Referring Provider: Tonya Harris, [address] [place] [address], [address] . tel:[phone] Offic/outpt E&m Estab Low-mod [facility], [address] [address], [place], [id number], [place] tel:[phone] [facility] GERD (chief complaint)Abd ominal pain (chief complaint)Felicia rrhea (chief complaint) Abdominal Pain, UnspecifiedD iarrheaNause a With Vomiting 0 No Information Referring Provider: Tonya Harris, [address] [place] [address], [id number] . tel:[phone] [facility], [address] [address], [place], [place], [id number], [place] tel:[phone] [facility] Gastroesopha geal Reflux 0 No Information Referring Provider: Tonya Harris, [address] [place] [address], [address] . tel:[phone] Offic/outpt E&m Estab Mod-hi [address] [facility], [address] [address], [place], [place], [id number], [place] tel:[phone] [facility] Abdominal pain (chief complaint) Gastroesopha geal RefluxAcute Pancreatitis 0 No Information Referring Provider: Tonya Harris, [address] [place] [address], [address] . tel:[phone] [facility], [address] [address], [place], [id number], [place] tel:[phone] [facility] No Information 8 No Information Offic Cons New/estab Mod-hi 60 [facility] [address] [address], [place], [id number], [place] tel:[phone] [facility] RUQ PainAbnormal Liver Enzymes 8 No Information Family History Family Member Type Diagnosis Age At Onset First degree family history Problem (finding) No history of Cancer, colon First degree family history Problem (finding) Cholelithasis First degree family history Problem (finding) No Family history of No history of Colon Polyps First degree family history Problem (finding) No history of Ulcerative Colitis First degree family history Problem (finding) No history of Crohn's Immunizations Vaccine Date Status Comments SARS-COV-2 (COVID-19) vaccin e, mRNA, spike protein, LNP, preservative free, 100 mcg or 50 mcg dose administered Note: [facility] bi-direct ional interface ; Source: Other Registry SARS-COV-2 (COVID-19) vaccin e, mRNA, spike protein, LNP, preservative free, 100 mcg or 50 mcg dose administered Note: [facility] bi-direct ional interface ; Source: Other Registry SARS-COV-2 (COVID-19) vaccin e, mRNA, spike protein, LNP, preservative free, 100 mcg or 50 mcg dose administered Note: [facility] bi-direct ional interface ; Source: Other Registry tetanus toxoid, reduced diphtheria toxoid, and acellular pertussis vaccine, adsorbed administered Note: [facility] bi-direct ional interface ; Source: Other Registry Afluria Qd administered Note: [facility] bi-directional interface ; Source: Other Registry Afluria Qd administered Note: [facility] bi-directional interface ; Source: Other Registry Fluzone Quad 6mo or older administered Note: [facility] bi-direct ional interface ; Source: Other Registry Influenza administered Note: [facility] bi-d irectional interface ; Source: Other Registry Influenza, seasonal, injectable, preservative free administered Note: [facility] bi-directional interface ; Source: Other Registry Influenza administered Note: [facility] bi-d irectional interface ; Source: Other Registry Influenza virus vaccine, injectable, quadrivalent, split virus, preservative free, 3 years or older Fluarix, Flulaval or Fluzone Quad administered Note: Invalid docume nted admin date was . ; Source: Other Provider Pneumovax administered Note: [facility] bi-d irectional interface ; Source: Other Registry Influenza, seasonal, injectable administe red Note: [facility] bi- directional interface ; Source: Other Registry Influenza, seasonal, injectable administe red Note: [facility] bi- directional interface ; Source: Other Registry Influenza, seasonal, injectable administe red Note: [facility] bi- directional interface ; Source: Other Registry Influenza, seasonal, injectable, preservative free administered Note: [facility] bi-directional interface ; Source: Other Registry Influenza, seasonal, injectable, preservative free administered Note: [facility] bi-directional interface ; Source: Other Registry tetanus toxoid, reduced diphtheria toxoid, and acellular pertussis vaccine, adsorbed administered Note: [facility] bi-direct ional interface ; Source: Other Registry Pneumovax 23 administered Note: [facility] bi-d irectional interface ; Source: Other Registry Influenza, seasonal, injectable, preservative free administered Note: [facility] bi-directional interface ; Source: Other Registry tetanus and diphtheria toxoi ds, adsorbed, preservative free, for adult use (5 Lf of tetanus toxoid and 2 Lf of diphtheria toxoid) administered Note: [facility] bi-direct ional interface ; Source: Other Registry Payers Payer name Insurance type Covered constitution party ID Authoriza tion(s) [facility] AARP Medic are Complete CI [id number] [employer] CI [id number] Social History Type Description Quantity Date Captured Comments Alcohol Use Details Unknown Caffeine Use Details Unknown Tobacco Use Status No Information Smoking Status No Information Sex Female Chief Complaint And Reason For Visit No Information Reason For Referral Reason For Referral No Information Plan Of Treatment Date Type Action Status Goal Lifestyle education asha murray diet completed Referral Ordered: Hepatic Function Panel Appointment date/timeframe: First Available ordered History Of Present Illness Encounter Date Complaint History Of Prese nt Illness GI Symptoms or Concerns This is a 40-year-old female who was referred to [facility] for elevated liver test. The patient was referred by Dr. Avtar Davenport with [facility]. Today's visit was completed via virtual visit, patient was in a private location, accompanied by her significant other, consent was obtained to proceed.PAST MEDICAL HISTORYADD, depression, atypical autism, learning disabilities, bipolar, migraines diabetes type 2, GERD, obesity, history of fatty liver disease on ultrasound in March 2014.SURGICAL HISTORYCholecystectomy.The patient recently saw her primary care provider for standard labs. Hepatic panel noted elevations in AST at 56, ALT 84. Alk phos and bilirubin were normal. Albumin mildly low at 3.2. CBC was normal, platelets 287. Given these elevations, she was recommended to be seen by GI. She denies any current symptoms. No fevers, chills, nausea, vomiting, jaundice, icterus, changes in urine or stool colors, weight loss, abdominal pains, constipation, bloody GI Symptoms or Concerns Betsey is seen today in followup.By history, this patient is a 39-year-old woman that we had seen in December, at that time she had symptomatic symptoms suggestive of reflux disease that had been ongoing and somewhat refractory.Subsequently, she was placed on an increased dose of omeprazole, she was asked to stop her anti-inflammatories and ultimately she underwent upper endoscopy by Dr. Berrios from our office 6 weeks ago, showing evidence of reflux.When seen today, she states she is actually doing well. Her reflux symptoms in general are controlled. She may occasionally get some mild symptoms, but overall feels improved. She has had minimal dyspepsia. Her weight has been stable and she is not taking any anti-inflammatories at this point.At the present time, she is on 40 mg of omeprazole b.i.d. and doing well.It is noted that at the time of endoscopy, she also was found to have evidence of Leelee. This was treated with Diflucan and she is otherwise f GI Symptoms or Concerns Betsey is a 39-year-old woman with a history of diabetes mellitus, asthma, hypertension, depression, and bipolar disorder we are seeing because of reflux. She states that she has symptoms on a regular basis. She describes mid epigastric discomfort that radiates into the mid chest. It can occur day and night. With this, she may have some regurgitation 1 or 2 times a week, often at night. She has tried sleeping upright without any help. Most recently, she has been taking 40 mg of omeprazole b.i.d. without any help. I note that her symptoms have been exacerbated somewhat recently by the use of naproxen, which she takes twice a day. In addition, her weight has gone up from 241 pounds in 2014 to now around 300 pounds by her history. There is no melena with this. No jaundice or dark urine. The symptoms are ongoing and precipitated by eating.Review of systems does show occasional diarrhea. She uses the anti-inflammatories. In addition, it is noted that she is to be seen in the GI Symptoms or Concerns The tamara galeas is a 33-year-old white female seen today regarding a two-month history of diarrhea and right upper quadrant abdominal pain. From a gastrointestinal standpoint, the patient has a history of chronic gastroesophageal reflux disease, previous cholecystectomy, and gastroparesis. She was last seen here in May 2010 or almost four years ago. Her current problems began about two months ago and in large measure are new for her. Her chief complaint today is that of diarrhea. She notes that about 5 to 10 minutes after eating just about anything everything goes through me. By this, she means she has significant urgency to have a bowel movement. She has had no fecal incontinence. Her stools are mostly loose to watery in consistency, not solid. She has never had this problem before. She is having around five to six bowel movements daily. She cannot relate this to the ingestion of any certain type of food nor the amount of food. She does have some occasional tenesmus. She has Functional Status Date Functional Assessmen t No Information Instructions Date Instruction Additional Infor mariza 1. Laboratory - CBC, CMP, sedimentation rate, C-reactive protein, screening serology for celiac disease, thyroid cascade.2. Stool for Clostridium difficile, Giardia, ova and parasites, culture for enteric pathogens, qualitative fecal fat, and fecal white blood cells.3. Abdominal sonogram.4. Schedule the patient for endoscopic evaluation including colonoscopy and upper endoscopy with appropriate biopsies. Reviewed in detail were the procedures, indications, alternatives, benefits, and risks. The patient indicates understanding and consent to proceed.5. The patient will return to clinic for followup visit after completion of testing to discuss results and further recommendations as indicated.6. The patient was given information today concerning diarrhea, abdominal pain, gastroesophageal reflux disease, and gastroparesis. Related to Chronic diarrhea Diarrhea Related to Chron ic diarrhea Abdominal Pain Related to RUQ P ain Gastroparesis Folder Related to Gastroparesis Gastroesophageal Reflux Disease Related to Gastroesophageal Reflux Lifestyle education regarding di et Related to Dietary surveillance and counseling Assessments Type Assessment Date No Information Patient Care Teams Name Effective Dates (start - stop) Status Members No Information
--- OUTSIDE RECORDS SUMMARY | 2023-09-19 05:28 | XMS_ITS | Continuity of Care Document ---
Author Organization [facility] Address [address] [place] [address] Phone Care Team Providers Care Logistics Team Lead Name Role Phone O Petra Vaughan PT Unavailable Unavailable Allergies, Adverse Reactions, Alerts Substance Reaction Status Criticality LURASIDONE HCL Nausea Active No Informatio n adhesive tape Rash Active No Information eszopiclone Migraines Active No Information ESCITALOPRAM OXALATE Vomiting Active No Info rmation latex Rash Active No Information Medications Medication Instructions Dosage Effective Dates (start - stop) Status Comments Advair HFA 230 mcg-21 mcg/actuation aerosol inhaler inhale 2 puff by inhalation route 2 times every day in the morning and evening 2.00 puff - Active ropinirole 2 mg tablet take 1 tablet by oral route every day 2 MG - Active ProAir HFA 90 mcg/actuation aerosol inhaler inhale 2 puff by inhalation route every 4 - 6 hours as needed - Active multivitamin tablet take 1 Tablet by oral route every day with food 1 Tablet - Active cetirizine 10 mg tablet take 1 tablet by oral route every day 10 MG - Active bupropion HCl SR 150 mg tablet,sustained-relea se take 2 tablet by oral route every day 300 MG - Active metformin ER 500 mg tablet,extended release 24hr (osmotic) take 2 tablet by oral route 2 times every day with the evening meal 1000 MG - Active oxcarbazepine 300 mg tablet take 1 tablet by oral route 2 times every day 300 MG - Active rosuvastatin 10 mg tablet take 1 tablet by oral route every day 10 MG - Active mirtazapine 15 mg tablet take 1 tablet by oral route every day before bedtime 15 MG - Active fluoxetine 40 mg capsule take 1 capsule by oral route every day in the morning 40 MG - Active Rexulti 1 mg tablet take 1 tablet by oral route every day 1 MG - Active Singulair 10 mg tablet take 1 tablet by oral route every day in the evening 10 MG - Active omeprazole 40 mg capsule,delayed release take 1 capsule by oral route every day before a meal 40 MG - Active gabapentin 400 mg capsule take 1 capsule by oral route 3 times every day 400 MG - Active buspirone 10 mg tablet take 2 tablet by oral route 3 times every day 20 MG - Active Procedures Procedure Date Psychiatric Diagnostic Evaluation Teleph one Only Est Pt Eval PT Eval - Low Complexity Neuromuscular Re-education New Pt Eval Moderate Est Pt Eval 15 Min Telehealth 0 Est Pt Eval 15 Min Telehealth 0 No Show Visit Fee Est Pt Eval 15 Min Telehealth 0 Aquatic Therapy Est Pt Eval 15 Min Therapeutic Exercise Inj Anes Epidur; Lumb/sac 1 Le 20 Inj Anes Epidur; Lumb/sac 1 Le 20 Methylprednisolone Acetate-40 0 Change Control for Diagnosis(s) 020 Change Control for Modifier(s) 20 Change Control for Pharmaceuticals No Show Visit Fee Inj Anes Epidur; Lumb/sac 1 Le 20 Therapeutic Exercise No Show Visit Fee Est Pt Eval 15 Min No Show Visit Fee No Show Visit Fee No Show Visit Fee No Show Visit Fee No Show Visit Fee Aquatic Therapy Est Pt Eval 15 Min Telehealth 0 Therapeutic Exercise Therapeutic Exercise Psychotherapy, 45 minutes with patient M Est Pt Eval 15 Min Aquatic Therapy Therapeutic Exercise Est Pt Eval 15 Min No Show Visit Fee Therapeutic Exercise Est Pt Eval 15 Min PT Eval - Low Complexity Mobility: Walking & Moving Around, Goal Mobility: Walking & Moving Around, Curre nt Psychiatric Diagnostic Evaluation New Pt Eval 30 Min Est Pt Eval 15 Min RF Lumbar/Sacral Single Level 6 RF Lumbar/Sacral Addt'l Level 6 RF Lumbar/Sacral Single Level 6 RF Lumbar/Sacral Addtl Level Est Pt Eval 15 Min Inj Anes Epidur; Lumb/sac 1 Le 16 Epidurography Rad S&i Inj Anes Epidur; Lumb/sac 1 Le 16 Neuromuscular Re-education Therapeutic Procedure Neuromuscular Re-education Therapeutic Procedure Neuromuscular Re-education Therapeutic Procedure No Show Visit Fee Inj Anes Facet Jt; Lumb/sac-1st Level Inj Anes Facet Jt; Lumb/sac-2nd Level Inj Anes Facet Jt; Lumb/sac-3rd Level Inj Anes Facet Jt; Lumb/sac-1st Level Inj Anes Facet Jt; Lumb/sac-1st Level Inj Anes Facet Jt; Lumb/sac-2nd Level Inj Anes Facet Jt; Lumb/sac-2nd Level Adverse Events did not occur Patient without preop order for prophyla ctic IV an Inj Anes Facet Jt; Lumb/sac-1st Level Ju Inj Anes Facet Jt; Lumb/sac-2nd Level Ju Neuromuscular Re-education Therapeutic Procedure Therapeutic Procedure Neuromuscular Re-education Est Pt Eval 15 Min Pain Assessment And Follow Up Plan Docum ented Therapeutic Procedure Neuromuscular Re-education Inj Anes Facet Jt; Lumb/sac-1st Level Ju Inj Anes Facet Jt; Lumb/sac-1st Level Ju Inj Anes Facet Jt; Lumb/sac-2nd Level Ju Inj Anes Facet Jt; Lumb/sac-2nd Level Ju Adverse Events did not occur Patient without preop order for prophyla ctic IV an Inj Anes Facet Jt; Lumb/sac-1st Level Inj Anes Facet Jt; Lumb/sac-2nd Level Therapeutic Procedure Neuromuscular Re-education Neuromuscular Re-education Therapeutic Procedure Phys Therap Eval Neuromuscular Re-education Therapeutic Activities Changing And Maintaining Body Position, Goal Changing And Maintaining Body Position, Current Est Pt Eval 25 Min Pain Assessment And Follow Up Plan Docum ented Inj Anes Epidur; Lumb/sac 1 Le 15 Inj Anes Epidur; Lumb/sac 1 Le 15 Adverse Events did not occur Patient without preop order for prophyla ctic IV an New Pt Eval 45 Min Pain Assessment And Follow Up Plan Docum ented Inj Anes Epidur; Lumb/sac 1 Le 15 Epidurography Advance Directives Directive Yes / No Effective Date File Name No Information Encounters Encounter Description Practice Location Reason(s) For Visit Diagnoses Date Provider Providers Copied on Encounter [facility], [address], [place], [place], [address], [place] tel:[phone] [facility] No Information 4 Joaquin Clement Lambert. [address], [place], [place], [address], [place]. tel:[phone] Psychiatric Diagnostic Evaluation Telephone Only [facility], [address], [place], [place], [address], [place] tel:[phone] [facility] Pain disorder with related psychological factorsMajor depressive disorder, recurrent, moderateGenera lized anxiety disorder 4 Lynn Dalton. [address], [place], [place], [address], [place]. tel:[phone] Referring Provider: Sky Batista, [address], [place], [address]. tel:[phone] Est Pt Eval [facility], [address], [place], [place], [address], [place] tel:[phone] [facility] back pain (chief complaint) Body mass index (BMI) 50-59.9 , adultVertebrog enic low back painSpondyls w/o myelopathy or radiculopathy, lumbosacr region 4 Zully Rhodes. [address], [place], [address], [place]. tel:[phone] Referring Provider: Sky Batista, [address], [place], [address]. tel:[phone] [facility], [address], [place], [place], [address], [place] tel:[phone] [facility] Low back painSpondyls w/o myelopathy or radiculopathy, lumbosacr region 4 O Clement Lambert. [address], [address], [place], [place], [address], [place]. tel:[phone] Referring Provider: Sky Batista, [address], [place], [address]. tel:[phone] New Pt Eval Moderate [facility], [address], [place], [place], [address], [place] tel:[phone] [facility] back pain (chief complaint) Body mass index (BMI) 50-59.9 , adultElevated blood-pressure reading, w/o diagnosis of htnLow back pain 4 Lynne Swanson. [address], [place], [place], [address], [place]. tel:[phone] Referring Provider: Sky Batista, [address], [place], [address]. tel:[phone] Est Pt Eval 15 Min Telehealth [facility], [address], [place], [place], [address], [place] tel:[phone] [facility] back pain (chief complaint) Low back pain 0 Damion Miranda. [address], [place], [place], [address], [place]. tel:[phone] Referring Provider: Avtar Davenport MD M, [address] [place], [address]. tel:[phone] Est Pt Eval 15 Min Telehealth [facility], [address], [place], [place], [address], [place] tel:[phone] [facility] back pain (chief complaint) Low back painOther intervertebral disc degeneration, lumbar regionConn tiss and disc stenos of intvrt foramin of lumbar region 0 Lucrecia Penny. [address], [place], [address], [place]. tel:[phone] Referring Provider: Avtar Coulter, [address] [place], [address]. tel:[phone] [facility], [address], [place], [place], [address], [place] tel:[phone] [facility] No Information 0 Lucrecia Francis. [address] [facility] [address], [place], [address], [place]. tel:[phone] Referring Provider: Avtar Coulter, [address] [place], [address]. tel:[phone] Est Pt Eval 15 Min Telehealth [facility], [address] [facility] [address], [place], [address], [place] tel:[phone] [facility] back pain (chief complaint) Low back painOther intervertebral disc degeneration, lumbar regionConn tiss and disc stenos of intvrt foramin of lumbar region 0 Lucrecia Camarillobeth. [address] [facility] [address], [place], [address], [place]. tel:[phone] Referring Provider: Avtar Coulter, [address] [place], [address]. tel:[phone] [facility], [address], [place], [place], [address], [place] tel:[phone] [facility] Low back painSpondyls w/o myelopathy or radiculopathy, lumbosacr region 0 Coos Anu. [address], [place], [place], [address], [place]. tel:[phone] Referring Provider: Avtar Coulter, [address] [facility], [place], [address]. tel:[phone] Est Pt Eval 15 Min [facility], [address], [place], [place], [address], [place] tel:[phone] [facility] back pain (chief complaint) Low back painOther intervertebral disc degeneration, lumbar regionConn tiss and disc stenos of intvrt foramin of lumbar region 0 Lucrecia Francis. [address] [facility] [address], [place], [address], [place]. tel:[phone] Referring Provider: Avtar Coulter, [address] [facility], [place], [address]. tel:[phone] [facility], [address], [place], [place], [address], [place] tel:[phone] [facility] Low back painSpondyls w/o myelopathy or radiculopathy, lumbosacr region 0 Jessica Anu. [address], [place], [place], [address], [place]. tel:[phone] Referring Provider: Avtar Coulter, [address] [facility], [place], [address]. tel:[phone] [facility], [address], [place], [address], [place] tel:[phone] [facility] back pain (chief complaint) Radiculopathy, lumbar regionLow back painRadiculopa thy, lumbar regionLow back pain Aug- 0 [facility]. [address], [place], [place], [address], [place]. tel:[phone] Referring Provider: Praveen Coulter, [address], [place], [address]. tel:[phone] [facility], [address], [place], [place], [address], [place] tel:[phone] [facility] No Information 0 Lynne Morton. [address], [place], [place], [address], [place]. tel:[phone] Referring Provider: Praveen Coulter, [address], [place], [address]. tel:[phone] [facility], [address], [place], [place], [address], [place] tel:[phone] [facility] Low back painSpondyls w/o myelopathy or radiculopathy, lumbosacr region Maurice- 0- 0 Jessica Anu. [address], [place], [place], [address], [place]. tel:[phone] Referring Provider: Avtar Coulter, [address] [place], [address]. tel:[phone] [facility], [address], [place], [place], [address], [place] tel:[phone] [facility] No Information 0 Coos Anne. [address], [place], [place], [address], [place]. tel:[phone] Referring Provider: Avtar Coulter, [address] [place], [address]. tel:[phone] Est Pt Eval 15 Min [facility], [address] [facility] [address], [place], [place], [address], [place] tel:[phone] [facility] back pain (chief complaint) Low back painOther intervertebral disc degeneration, lumbar regionConn tiss and disc stenos of intvrt foramin of lumbar regionBipolar disorderMild intermittent asthmaType 2 diabetes mellitus w/o complications 0 Lucrecia Galarzazabeth. [address] [facility] [address], [place], [address], [place]. tel:[phone] Referring Provider: Avtar Coulter, [address] [place], [address]. tel:[phone] [facility], [address] [facility] [address], [place], [address], [place] tel:[phone] [facility] No Information 0 Damion Miranda. [address] [facility] [address] [facility] [address], [place], [place], [address], [place]. tel:[phone] Referring Provider: Avtar Coulter, [address] [place], [address]. tel:[phone] [facility], [address], [place], [address], [place] tel:[phone] [facility] No Information 0 Jessica Brennan. [address] [facility] [address], [place], [place], [address], [place]. tel:[phone] Referring Provider: Avtar Coulter, [address] [place], [address]. tel:[phone] [facility], [address], [place], [place], [address], [place] tel:[phone] [facility] No Information 0 Dgdipak Ruth. [address], [place], [place], [address], [place]. tel:[phone] Referring Provider: Avtar Coulter, [address] [place], [address]. tel:[phone] [facility], [address], [place], [address], [place] tel:[phone] [facility] No Information 0 Lurdes Rogers. [address], [place], [address], [place]. tel:[phone] Referring Provider: Avtar Coulter, [address] [place], [address]. tel:[phone] [facility], [address], [place], [address], [place] tel:[phone] [facility] No Information 0 Lucrecia Francis. [address], [place], [address], [place]. tel:[phone] Referring Provider: Avtar Cuolter, [address] [place], [address]. tel:[phone] [facility], [address], [place], [address], [place] tel:[phone] [facility] Low back painSpondyls w/o myelopathy or radiculopathy, lumbosacr region Jun- 0 Jessica Brennan. [address], [place], [place], [address], [place]. tel:[phone] Referring Provider: Avtar Coulter, [address] [facility], [place], [address]. tel:[phone] Est Pt Eval 15 Min Telehealth [facility], [address], [place], [place], [address], [place] tel:[phone] [facility] back pain (chief complaint) Low back painOther intervertebral disc degeneration, lumbar regionInterver tebral disc disorders w radiculopathy, lumbar regionOther intervertebral disc degeneration, lumbosacral regionSpondyls w/o myelopathy or radiculopathy, lumbosacr regionSpondylo sis w/o myelopathy or radiculopathy, lumbar regionConn tiss and disc stenos of intvrt foramin of lumbar regionPain in right shoulderPain in left shoulder Apr-1 6-202 0 Lucrecia Penny. [address] [facility] [address], [place], [address], [place]. tel:[phone] Referring Provider: Avtar Coulter, [address] [facility], [place], [address]. tel:[phone] [facility], [address], [place], [place], [address], [place] tel:[phone] [facility] Low back painSpondyls w/o myelopathy or radiculopathy, lumbosacr region Apr-0 8-202 0 Jessica Anu. [address], [place], [place], [address], [place]. tel:[phone] Referring Provider: Avtar Coulter, [address] [place], [address]. tel:[phone] [facility], [address], [place], [place], [address], [place] tel:[phone] [facility] Low back painSpondyls w/o myelopathy or radiculopathy, lumbosacr region 0 Jessica Brennan. [address] [facility] [address], [place], [place], [address], [place]. tel:[phone] Referring Provider: Avtar Coulter, [address] [place], [address]. tel:[phone] Psychotherap y, 45 minutes with patient [facility], [address] [facility] [address], [place], [place], [address], [place] tel:[phone] [facility] Generalized anxiety disorderPain disorder with related psychological factors 0 Wilma Lemons. [address] [facility], [place], [place], [address], [place]. tel:[phone] Referring Provider: Avtar Coulter, [address] [place], [address]. tel:[phone] Est Pt Eval 15 Min [facility], [address] [facility] [address], [place], [place], [address], [place] tel:[phone] [facility] back pain (chief complaint) Low back painOther intervertebral disc degeneration, lumbar regionInterver tebral disc disorders w radiculopathy, lumbar regionSpondylo sis w/o myelopathy or radiculopathy, lumbar regionOther intervertebral disc degeneration, lumbosacral region 0 Lucrecia Francis. [address] [facility] [address], [place], [address], [place]. tel:[phone] Referring Provider: Avtar Coulter, [address] [place], [address]. tel:[phone] [facility], [address] [facility] [address], [place], [place], [address], [place] tel:[phone] [facility] Low back painSpondyls w/o myelopathy or radiculopathy, lumbosacr region 0 Jessica Brennan. [address] [facility] [address], [place], [place], [address], [place]. tel:[phone] Referring Provider: Avtar Coulter, [address] [facility], [place], [address]. tel:[phone] [facility], [address] [facility] [address], [place], [place], [address], [place] tel:[phone] [facility] Low back painSpondyls w/o myelopathy or radiculopathy, lumbosacr region 0 Lore Rogers. [address] [place], [address], [place]. tel:[phone] Referring Provider: Avtar Coulter, [address] [facility], [place], [address]. tel:[phone] Est Pt Eval 15 Min [facility], [address] [facility] [address], [place], [place], [address], [place] tel:[phone] [facility] back pain (chief complaint) Spondyls w/o myelopathy or radiculopathy, lumbosacr regionSpondylo sis w/o myelopathy or radiculopathy, lumbar regionLow back painOther intervertebral disc degeneration, lumbosacral regionInterver tebral disc disorders w radiculopathy, lumbar regionOther intervertebral disc degeneration, lumbar regionConn tiss and disc stenos of intvrt foramin of lumbar region 0 Lucrecia Francis. [address] [facility] , [place], [address], [place]. tel:[phone] Referring Provider: Avtar Coulter, [address] [place], [address]. tel:[phone] [facility], [address], [place], [place], [address], [place] tel:[phone] [facility] No Information 0 Torrez Sue. [address] [place], [address], [place]. tel:[phone] Referring Provider: Avtar Coulter, [address] [place], [address]. tel:[phone] [facility], [address], [place], [place], [address], [place] tel:[phone] [facility] Low back pain 0 Jessica Brennan. [address], [place], [place], [address], [place]. tel:[phone] Referring Provider: Avtar Coulter, [address] [place], [address]. tel:[phone] Est Pt Eval 15 Min [facility], [facility], [address], [place], [place], [address], [place] tel:[phone] [facility] back pain (chief complaint) Intervertebral disc disorders w radiculopathy, lumbar regionOther intervertebral disc degeneration, lumbar regionSpondylo sis w/o myelopathy or radiculopathy, lumbar regionChronic pain syndrome 0 Lucrecia Francis. [address], [place], [address], [place]. tel:[phone] Referring Provider: Avtar Coulter, [address] [place], [address]. tel:[phone] [facility], [address], [place], [place], [address], [place] tel:[phone] [facility] Low back pain 9 Jessica Brennan. [address], [place], [address], [place]. tel:[phone] Referring Provider: Avtar Coulter, [address] [facility], [place], [address]. tel:[phone] Psychiatric Diagnostic Evaluation [facility], [address], [place], [place], [address], [place] tel:[phone] [facility] Pain disorder with related psychological factors 9 Wilma Lemons. [address], [place], [place], [address], [place]. tel:[phone] Referring Provider: Avtar Coulter, [address] [place], [address]. tel:[phone] New Pt Eval 30 Min [facility], [facility], [address], [place], [place], [address], [place] tel:[phone] [facility] back pain (chief complaint) Low back painChronic pain syndrome 9 Lynne Swanson. [address], [place], [address], [place]. tel:[phone] Referring Provider: Avtar Coulter, [address] [facility], [place], [address]. tel:[phone] Est Pt Eval 15 Min [facility], [facility], [address], [place], [place], [address], [place] tel:[phone] [facility] Spondylosis without myelopathy or radiculopathy, lumbar regionSpondylo sis without myelopathy or radiculopathy, lumbosacral regionOther intervertebral disc degeneration, lumbar regionLow back pain 6 Robyn Coulter. [address], [facility], [place], [address], [place]. tel:[phone] Referring Provider: Beba Vernon, [address], [place], [address]. tel:[phone] [facility], [address], [place], [address], [place] tel:[phone] [facility] Spondylosis without myelopathy or radiculopathy, lumbar regionSpondylo sis without myelopathy or radiculopathy, lumbosacral regionOther intervertebral disc degeneration, lumbar regionLow back pain 6 Ambrocio Billings. [address], [place], [place], [address], [place]. tel:[phone] Referring Provider: Manuelito Albrecht, [address], [place], [address]. tel:[phone] [facility], [address], [place], [place], [address], [place] tel:[phone] [facility] No Information 6 Ambrocio Billings. [address], [place], [place], [address], [place]. tel:[phone] Referring Provider: Manuelito Albrecht, [address], [place], [address]. tel:[phone] Est Pt Eval 15 Min [facility], [address], [place], [place], [address], [place] tel:[phone] [facility] Other intervertebral disc degeneration, lumbar regionLow back painInterverte bral disc disorders w radiculopathy, lumbar region Robyn Coulter. [address], [facility], [place], [address], [place]. tel:[phone] Referring Provider: Beba Vernon, [address], [place], [address]. tel:[phone] [facility], [address], [place], [address], [place] tel:[phone] [facility] Other intervertebral disc degeneration, lumbar regionLow back painInterverte bral disc disorders w radiculopathy, lumbar region 6 Ambrocio Billings. [address], [address], [place], [place], [address], [place]. tel:[phone] Referring Provider: Manuelito Albrecht, [address], [place], [address]. tel:[phone] [facility], [address], [place], [place], [address], [place] tel:[phone] [facility] No Information 6 Ambrocio Billings. [address], [place], [place], [address], [place]. tel:[phone] Referring Provider: Beba Vernon, [address], [place], [address]. tel:[phone] [facility], [address], [place], [place], [address], [place] tel:[phone] [facility] 7390 No Information 5 Janeen Beba. [address], [place], [place], [address], [place]. tel:[phone] Referring Provider: Beba Vernon, [address], [place], [address]. tel:[phone] [facility], [address], [place], [place], [address], [place] tel:[phone] [facility] 7390 No Information Aug- 5 Janeen Beba. [address], [place], [place], [address], [place]. tel:[phone] Referring Provider: Beba Janeen, [address], [place], [address]. tel:[phone] [facility], [address], [place], [place], [address], [place] tel:[phone] [facility] 7390 No Information 5 Janeen Beba. [address], [place], [place], [address], [place]. tel:[phone] Referring Provider: Beba Vernon, [address], [place], [address]. tel:[phone] [facility], [address], [place], [place], [address], [place] tel:[phone] [facility] 7390 No Information Oct-0 5 Janeen Beba. [address], [place], [place], [address], [place]. tel:[phone] Referring Provider: REFERRAL OMA, MAJO. [facility], [address], [place], [address], [place] tel:[phone] [facility] No Information 5 Ambrocio Billings. [address], [place], [place], [address], [place]. tel:[phone] Referring Provider: Manuelito Albrecht, [address], [place], [address]. tel: [phone] [facility], [address], [place], [place], [address], [place] tel:[phone] [facility] No Information 5 Ambrocio Billings. [address], [place], [place], [address], [place]. tel:[phone] Referring Provider: Manuelito Albrecht, [address], [place], [address]. tel: [phone] [facility], [address], [place], [place], [address], [place] tel: [facility] 7390 No Information 5 Janeen Yoder. [address], [place], [place], [address], [place]. tel:[phone] Referring Provider: REFERRAL OMA, MAJO. [facility], [address], [place], [place], [address], [place] tel:[phone] [facility] 7390 No Information 5 Janeen Yoder. [address], [place], [place], [address], [place]. tel:[phone] Referring Provider: Beba Vernon, [address], [place], [address]. tel:[phone] Est Pt Eval 15 Min [facility], [address], [place], [place], [address], [place] tel:[phone] [facility] No Information 5 Qamar Rock. [address] [facility], [place], [address], [place]. tel:[phone] Referring Provider: Shweta Kiran, [address] [facility], [place], [address]. tel:[phone] [facility], [address], [place], [place], [address], [place] tel:[phone] [facility] 7390 No Information 5 Peterson Vang. [address], [place], [place], [address], [place]. tel:[phone] Referring Provider: Ciera Winkler PT, [address], [place], [address]. tel:[phone] [facility], [address], [place], [address], [place] tel:[phone] [facility] No Information 5 Ambrocio Billings. [address], [place], [place], [address], [place]. tel:[phone] Referring Provider: Manuelito Albrecht, [address], [place], [address]. tel:[phone] [facility], [address], [place], [place], [address], [place] tel:[phone] [facility] No Information 5 Ambrocio Billings. [address], [place], [place], [address], [place]. tel:[phone] Referring Provider: Manuelito Albrecht, [address], [place], [address]. tel:[phone] [facility], [address], [place], [place], [address], [place] tel:[phone] [facility] 7390 No Information 5 Janeen Beba. [address], [place], [place], [address], [place]. tel:[phone] Referring Provider: Beba Vernon, [address], [place], [address]. tel:[phone] [facility], [address], [place], [place], [address], [place] tel:[phone] [facility] 7390 No Information 5 Janeen Beba. [address], [place], [place], [address], [place]. tel:[phone] Referring Provider: Beba Vernon, [address], [place], [address]. tel:[phone] [facility], [address], [place], [place], [address], [place] tel:[phone] [facility] 7390 No Information 5 [facility]. [address], [place], [place], [address], [place]. tel:[phone] Referring Provider: Manuelito Albrecht, [address], [place], [address]. tel:[phone] Est Pt Eval 25 Min [facility], [address], [place], [place], [address], [place] tel:[phone] [facility] No Information 5 Qamar Rock. [address], [place], [place], [address], [place]. tel:[phone] Referring Provider: Shweta Kiran, [address] [place], [place], [address]. tel:[phone] [facility], [address], [place], [address], [place] tel:[phone] [facility] No Information 5 Ambrocio Billings. [address], [place], [place], [address], [place]. tel:[phone] Referring Provider: Manuelito Albrecht, [address], [place], [address]. tel:[phone] New Pt Eval 45 Min [facility], [facility], [address], [place], [place], [address], [place] tel:[phone] [facility] No Information 5 Ambrocio Billings. [address], [place], [place], [address], [place]. tel:[phone] Referring Provider: Manuelito Albrecht, [address], [place], [address]. tel:[phone] [facility], [facility], [address], [place], [place], [address], [place] tel:[phone] [facility] No Information 0 5 Ambrocio Billings. [address], [place], [place], [address], [place]. tel:[phone] Referring Provider: Manuelito Albrecht, [address] [facility] [address], [place], [address]. tel:[phone] Family History Family Member Type Diagnosis Age At Onset Mother Problem (finding) diabetes brielle ryan in first degree relative Mother Problem (finding) asthma Payers Payer name Insurance type Covered alliance party ID Authoriza tiziyad(s) [employer] [id number] [employer] HMO [id number] Social History Type Description Quantity Date Captured Comments Alcohol Use Details Unknown Caffeine Use Details Unknown Tobacco Use Status No Information Smoking Status No Information Sex Female Chief Complaint And Reason For Visit No Information Reason For Referral Reason For Referral No Information Plan Of Treatment Date Type Action Status Goal Lifestyle educat ion regarding diet completed Referral Ordered: Referrals: Behavioral Health. Evaluate and treat ordered Referral Referred To: Physical Therapy Ordered: Referrals: Physical Therapy. Evaluate and treat ordered Future Order: Radiology Order X- RAY - Lumbar Spine (AP, Neutral, Lateral Neutral, Flexion, Extension Views) ([id number]), Ordered on: Ordered Future Order: Radiology Order MR I - Lumbar Spine W/O Contrast ([id number]), Ordered on: Ordered Future Order: Radiology Order MR I - Lumbar Spine W/O Contrast ([id number]), Ordered on: Ordered History Of Present Illness Encounter Date Complaint History Of Prese nt Illness back pain Severity level i s 8. Location of pain is lower back. The patient describes the pain as sharp. Studies Reviewed X-ray lower spi ne, bending, 4+ views performed on 05/02/2023. Interpretation: see detail, Result: CONCLUSION:Straightened lordosisSevere L5-S1 disc degeneration with mild facet arthrosis.No hypermobility. Studies Reviewed MRI, lumbar spi ne, w/o contrast performed on 05/02/2023. Interpretation: see detail, Result: CONCLUSION:4 mm AP left paracentral L5-S1 disc protrusion and left foraminal osteophyte/bulgeModerate L4-5 and moderately severe L5-S1 disc degeneration with L5-S1 Modic 1 marrow change.No stenosis or impingement.Modic 1 marrow changes have progressed compared to 05/27/2021. No other interval change. back pain (comments) Comments: Ck teague is a 42 year old woman and a previous [facility] patient present in the clinic with chronic back pain. Her last injection at [facility] was a bilateral L4-L5 transforaminal lumbar epidural steroid injection in August of 2019. Since then she's completed pool therapy at [facility]. Her pain has gradually increased in frequency and severity. She is currently managing her pain with gabapentin 400mg 3x/day. She is interested in repeating a lumbar epidural steroid injection and restarting physical therapy which we will order today. back pain Onset: ongoing f or many years. The problem is worsening. It occurs persistently. Location of pain is lower back.There is no radiation of pain. The patient describes the pain as an ache and sharp. Symptoms are aggravated by prolonged standing and walking.The patient denies relieving factors. Studies Reviewed MRI, lumbar spi ne, w/o contrast performed on 05/27/2021. Result: CONCLUSION:1 Moderate-sized 4 mm left paracentral disc protrusion at L5-S1 without neural impingement.2. L5-S1, L4-5 and L3-4 disc degeneration with moderate mixed discogenic signal changes on the left at L5-S1.3. No significant central or foraminal stenosis and no neural impingement.4. No neoplasm, fracture or infection. back pain Severity level i s 7. The problem is fluctuating. It occurs persistently. Location of pain is lower back.The patient describes the pain as an ache, deep, sharp, shooting, stabbing and throbbing. Symptoms are aggravated by bending, changing positions, sitting, standing, twisting and walking.The patient denies relieving factors. back pain Location of pain is lower back and left shoulder.The patient describes the pain as an ache, deep, sharp, shooting, stabbing and throbbing. Symptoms are aggravated by bending, sitting, standing and walking.The patient denies relieving factors. back pain Location of pain is lower back and shoulders.The patient describes the pain as an ache, deep, sharp, shooting, stabbing and throbbing. Symptoms are aggravated by bending, changing positions, sitting, standing and twisting.The patient denies relieving factors. back pain Location of pain is lower back.The patient describes the pain as an ache, deep, sharp, shooting, stabbing and throbbing. Symptoms are aggravated by bending, changing positions, standing and walking.The patient denies relieving factors. back pain Location of pain is lower back. back pain Location of pain is lower back. back pain Location of pain is lower back and left shoulder.The patient describes the pain as an ache, deep, sharp, shooting, stabbing and throbbing. Symptoms are aggravated by bending, changing positions, standing and walking.The patient denies relieving factors. back pain Severity level i s 9. It occurs persistently. Location of pain is lower back.There is no radiation of pain. The patient describes the pain as an ache, deep, sharp, shooting, stabbing and throbbing. Symptoms are aggravated by bending, changing positions, standing and walking.The patient denies relieving factors. back pain It occurs persis tently. Location of pain is lower back.There is no radiation of pain. The patient describes the pain as an ache, deep, sharp, shooting, stabbing and throbbing. Symptoms are aggravated by bending, changing positions, standing and walking.The patient denies relieving factors. back pain It occurs persis tently. Location of pain is lower back.There is no radiation of pain. The patient describes the pain as an ache, deep, sharp, shooting, stabbing and throbbing. Symptoms are aggravated by bending, changing positions, standing and walking.The patient denies relieving factors. back pain It occurs persis tently. Location of pain is lower back. Pain is radiated to the back.The patient describes the pain as an ache, deep, sharp, shooting, stabbing and throbbing. Symptoms are aggravated by bending, changing positions, standing and walking.The patient denies relieving factors. Functional Status Date Functional Assessmen t No Information Instructions Date Instruction Additional Infor mariza plan as above Related to Verte brogenic low back pain - Nice to meet you!- Schedule lumbar epidural steroid injection*Talk to cylinder block mechanic or call [phone] to schedule- Follow up with pool therapy as scheduled- Follow up with behavioral health as scheduled- Consider basivertebral nerve ablation if injections are not helpful - Follow up with a nurse practitioner or P.A 1-2 weeks after injection as needed, telehealth okay Related to Spondyls w/o myelopathy or radiculopathy, lumbosacr region Giving encouragement to exercise Related to Body mass index [BMI] 50.0-59.9, adult -Same plan of care as above Rela emma to Body mass index (BMI) 50-59.9 , adult -Requested medical r ecords from [facility] -Order MRI of the lumbar spine at [facility]-Order lateral flexion vs extension x ray of the lumbar spine at [facility]-Order stationary neutral A/P and lateral views x rays at [facility]-Schedule physical therapy-Schedule behavioral health -Order lumbar epidural steroid injection-Follow up with a nurse practitioner or P.A in one month Related to Low back pain Hypertension education Related t o Elevated blood-pressure reading, w/o diagnosis of htn Lifestyle education regarding di et Related to Body mass index [BMI] 50.0-59.9, adult Assessments Type Assessment Date No Information Patient Care Teams Name Effective Dates (start - stop) Status Members No Information
--- OUTSIDE RECORDS SUMMARY | 2023-09-19 05:28 | XMS_ITS | Continuity of Care Document ---
Author Organization [facility] Address [address] [place] [address] Phone Care Team Providers Care It Support Specialist Name Role Phone O Petra Vaughan PT Unavailable Unavailable Allergies, Adverse Reactions, Alerts Substance Reaction Status Criticality LURASIDONE HCL Nausea Active No Informatio n adhesive tape Rash Active No Information eszopiclone Migraines Active No Information ESCITALOPRAM OXALATE Vomiting Active No Info rmation latex Rash Active No Information Medications Medication Instructions Dosage Effective Dates (start - stop) Status Comments ropinirole 2 mg tablet take 1 tablet [...] route every day 300 MG - Active Advair HFA 230 mcg-21 mcg/actuation aerosol inhaler inhale 2 puff by inhalation route 2 times every day in the morning and evening 2.00 puff - Active metformin ER 500 mg tablet,extended [...] Providers Copied on Encounter [facility], [address], [place], [place], [address], [place] tel:[phone] [facility] No Information 4 Joaquin Clement Lambert. [address], [place], [place], [address], [place]. tel:[phone] Psychiatric Diagnostic Evaluation Telephone Only [facility], [address], [place], [place], [address], [place] tel:[phone] [facility] Pain disorder with related psychological factorsMajor depressive disorder, recurrent, moderateGenera lized anxiety disorder 4 Lynn Dalton. [address], [place], [place], [address], [place]. tel:[phone] Referring Provider: Sky Batista, [address], [place], [address]. tel:[phone] Est Pt Eval [facility], [address], [place], [place], [address], [place] tel:[phone] [facility] back pain (chief complaint) Body mass index (BMI) 50-59.9 , adultVertebrog enic low back painSpondyls w/o myelopathy or radiculopathy, lumbosacr region 4 Zully Rhodes. [address], [place], [address], [place]. tel:[phone] Referring Provider: Sky Batista, [address], [place], [address]. tel:[phone] [facility], [address], [place], [place], [address], [place] tel:[phone] [facility] Low back painSpondyls w/o myelopathy or radiculopathy, lumbosacr region 4 O Clement Lambert. [address], [address], [place], [place], [address], [place]. tel:[phone] Referring Provider: Sky Batista, [address], [place], [address]. tel:[phone] New Pt Eval Moderate [facility], [address], [place], [place], [address], [place] tel:[phone] [facility] back pain (chief complaint) Body mass index (BMI) 50-59.9 , adultElevated blood-pressure reading, w/o diagnosis of htnLow back pain 4 Lynne Swanson. [address], [place], [place], [address], [place]. tel:[phone] Referring Provider: Sky Batista, [address], [place], [address]. tel:[phone] Est Pt Eval 15 Min [facility], [address], [place], [place], [address], [place] tel:[phone] [facility] back pain (chief complaint) Low back pain 0 Damion Miranda. [address], [place], [place], [address], [place]. tel:[phone] Referring Provider: Avtar Davenport MD M, [address] [place], [address]. tel:[phone] Est Pt Eval 15 Min [facility], [address], [place], [place], [address], [place] tel:[phone] [facility] back pain (chief complaint) Low back painOther intervertebral disc degeneration, lumbar regionConn tiss and disc stenos of intvrt foramin of lumbar region 0 Lucrecia Penny. [address], [place], [address], [place]. tel:[phone] Referring Provider: Avtar Coulter, [address] [place], [address]. tel:[phone] [facility], [address], [place], [place], [address], [place] tel:[phone] [facility] No Information 0 Lucrecia Francis. [address] [facility] [address], [place], [address], [place]. tel:[phone] Referring Provider: Avtar Coulter, [address] [place], [address]. tel:[phone] Est Pt Eval 15 Min [facility], [address] [facility] [address], [place], [address], [place] tel:[phone] [facility] back pain (chief complaint) Low back painOther intervertebral disc degeneration, lumbar regionConn tiss and disc stenos of intvrt foramin of lumbar region 0 Lucrecia Camarillobeth. [address] [facility] [address], [place], [address], [place]. tel:[phone] Referring Provider: Avtar Coulter, [address] [place], [address]. tel:[phone] [facility], [address], [place], [place], [address], [place] tel:[phone] [facility] Low back painSpondyls w/o myelopathy or radiculopathy, lumbosacr region 0 Mercer Anu. [address], [place], [place], [address], [place]. tel:[phone] Referring Provider: Avtar Coulter, [address] [facility], [place], [address]. tel:[phone] Est Pt Eval 15 Min [facility], [address], [place], [place], [address], [place] tel:[phone] [facility] back pain (chief complaint) Low back painOther intervertebral disc degeneration, lumbar regionConn tiss and disc stenos of intvrt foramin of lumbar region 0 Lucrecia Francis. [address] [facility] [address], [place], [address], [place]. tel:[phone] Referring Provider: Avtar Coulter, [address] [facility], [place], [address]. tel:[phone] [facility], [address], [place], [place], [address], [place] tel:[phone] [facility] Low back painSpondyls w/o myelopathy or radiculopathy, lumbosacr region 0 Jessica Anu. [address], [place], [place], [address], [place]. tel:[phone] Referring Provider: Avtar Coultre, [address] [facility], [place], [address]. tel:[phone] [facility], [address], [place], [address], [place] tel:[phone] [facility] [place] back pain (chief complaint) Radiculopathy, lumbar regionLow back painRadiculopa thy, lumbar regionLow back pain Aug- 0 [facility] Surgical [facility]. [address], [place], [place], [address], [place]. tel:[phone] Referring Provider: Praveen Coulter, [address], [place], [address]. tel:[phone] [facility], [address], [place], [place], [address], [place] tel:[phone] [facility] No Information 0 Lynne Morton. [address], [place], [place], [address], [place]. tel:[phone] Referring Provider: Praveen Coulter, [address], [place], [address]. tel:[phone] [facility], [address], [place], [place], [address], [place] tel:[phone] [facility] Low back painSpondyls w/o myelopathy or radiculopathy, lumbosacr region Maurice- 0- 0 Jessica Anu. [address], [place], [place], [address], [place]. tel:[phone] Referring Provider: Avtar Coulter, [address] [place], [address]. tel:[phone] [facility], [address], [place], [place], [address], [place] tel:[phone] [facility] No Information 0 Mercer Anne. [address], [place], [place], [address], [place]. tel:[phone] Referring Provider: Avtar Coulter, [address] [place], [address]. tel:[phone] Est Pt Eval 15 Min [facility], [address] [facility] [address], [place], [place], [address], [place] tel:[phone] [facility] pain (chief complaint) Low back painOther intervertebral disc degeneration, lumbar regionConn tiss and disc stenos of intvrt foramin of lumbar regionBipolar disorderMild intermittent asthmaType 2 diabetes mellitus w/o complications 0 Lucrecia Galarzazabeth. [address] [facility] [address], [place], [address], [place]. tel:[phone] Referring Provider: Avtar Coulter, [address] [place], [address]. tel:[phone] [facility], [address] [facility] [address], [place], [address], [place] tel:[phone] [facility] No Information 0 Damion Miranda. [address] [facility] [address] [facility] [address], [place], [place], [address], [place]. tel:[phone] Referring Provider: Avtar Coulter, [address] [place], [address]. tel:[phone] [facility], [address], [place], [address], [place] tel:[phone] [facility] No Information 0 Jessica Brennan. [address] [facility] [address], [place], [place], [address], [place]. tel:[phone] Referring Provider: Avtar Coulter, [address] [place], [address]. tel:[phone] [facility], [address], [place], [place], [address], [place] tel:[phone] [facility] No Information 0 Dgdipak Ruth. [address], [place], [place], [address], [place]. tel:[phone] Referring Provider: Avtar Coulter, [address] [place], [address]. tel:[phone] [facility], [address], [place], [address], [place] tel:[phone] [facility] No Information 0 Lurdes Rogers. [address], [place], [address], [place]. tel:[phone] Referring Provider: Avtar Coulter, [address] [place], [address]. tel:[phone] [facility], [address], [place], [address], [place] tel:[phone] [facility] No Information 0 Lucrecia Francis. [address], [place], [address], [place]. tel:[phone] Referring Provider: Avtar Coulter, [address] [place], [address]. tel:[phone] [facility], [address], [place], [address], [place] tel:[phone] [facility] Low back painSpondyls w/o myelopathy or radiculopathy, lumbosacr region Jun- 0 Jessica Brennan. [address], [place], [place], [address], [place]. tel:[phone] Referring Provider: Avtar Coulter, [address] [facility], [place], [address]. tel:[phone] Est Pt Eval 15 Min [facility], [address], [place], [place], [address], [place] tel:[phone] [facility] back pain (chief complaint) Low back painOther intervertebral disc degeneration, lumbar regionInterver tebral disc disorders w radiculopathy, lumbar regionOther intervertebral disc degeneration, lumbosacral regionSpondyls w/o myelopathy or radiculopathy, lumbosacr regionSpondylo sis w/o myelopathy or radiculopathy, lumbar regionConn tiss and disc stenos of intvrt foramin of lumbar regionPain in right shoulderPain in left shoulder Apr-1 6-202 0 Lucrecia Penny. [address] [facility] [address], [place], [address], [place]. tel:[phone] Referring Provider: Avtar Coulter, [address] [facility], [place], [address]. tel:[phone] [facility], [address], [place], [place], [address], [place] tel:[phone] [facility] Low back painSpondyls w/o myelopathy or radiculopathy, lumbosacr region Apr-0 8-202 0 Jessica Anu. [address], [place], [place], [address], [place]. tel:[phone] Referring Provider: Avtar Coulter, [address] [place], [address]. tel:[phone] [facility], [address], [place], [place], [address], [place] tel:[phone] [facility] Low back painSpondyls w/o myelopathy or radiculopathy, lumbosacr region 0 Jessica Brennan. [address] [facility] [address], [place], [place], [address], [place]. tel:[phone] Referring Provider: Avtar Coulter, [address] [place], [address]. tel:[phone] Psychotherap y, 45 minutes with patient [facility], [address], [place], [place], [address], [place] tel:[phone] [facility] Generalized anxiety disorderPain disorder with related psychological factors 0 Wilma Lemons. [address] [facility], [place], [place], [address], [place]. tel:[phone] Referring Provider: Avtar Coulter, [address] [place], [address]. tel:[phone] Est Pt Eval 15 Min [facility], [address], [place], [place], [address], [place] tel:[phone] [facility] back pain (chief complaint) Low back painOther intervertebral disc degeneration, lumbar regionInterver tebral disc disorders w radiculopathy, lumbar regionSpondylo sis w/o myelopathy or radiculopathy, lumbar regionOther intervertebral disc degeneration, lumbosacral region 0 Lucrecia Francis. [address] [facility] [address], [place], [address], [place]. tel:[phone] Referring Provider: Avtar Coulter, [address] [place], [address]. tel:[phone] [facility], [address] [facility] [address], [place], [place], [address], [place] tel:[phone] [facility] Low back painSpondyls w/o myelopathy or radiculopathy, lumbosacr region 0 Jessica Brennan. [address] [facility] [address], [place], [place], [address], [place]. tel:[phone] Referring Provider: Avtar Coulter, [address] [facility], [place], [address]. tel:[phone] [facility], [address] [address], [place], [place], [address], [place] tel:[phone] [facility] Low back painSpondyls w/o myelopathy or radiculopathy, lumbosacr region 0 Lore Rogers. [address] [place], [address], [place]. tel:[phone] Referring Provider: Avtar Coulter, [address] [facility], [place], [address]. tel:[phone] Est Pt Eval 15 Min [facility], [address] [facility] [address], [place], [place], [address], [place] tel:[phone] [facility] back pain (chief complaint) Spondyls w/o myelopathy or radiculopathy, lumbosacr regionSpondylo sis w/o myelopathy or radiculopathy, lumbar regionLow back painOther intervertebral disc degeneration, lumbosacral regionInterver tebral disc disorders w radiculopathy, lumbar regionOther intervertebral disc degeneration, lumbar regionConn tiss and disc stenos of intvrt foramin of lumbar region 0 Lucrecia Francis. [address] [facility] , [place], [address], [place]. tel:[phone] Referring Provider: Avtar Coulter, [address] [place], [address]. tel:[phone] [facility], [address], [place], [place], [address], [place] tel:[phone] [facility] No Information 0 Torrez Sue. [address] [place], [address], [place]. tel:[phone] Referring Provider: Avtar Coulter, [address] [place], [address]. tel:[phone] [facility], [address], [place], [place], [address], [place] tel:[phone] [facility] Low back pain 0 Jessica Brennan. [address], [place], [place], [address], [place]. tel:[phone] Referring Provider: Avtar Coulter, [address] [place], [address]. tel:[phone] Est Pt Eval 15 Min [facility], [facility], [address], [place], [place], [address], [place] tel:[phone] [facility] back pain (chief complaint) Intervertebral disc disorders w radiculopathy, lumbar regionOther intervertebral disc degeneration, lumbar regionSpondylo sis w/o myelopathy or radiculopathy, lumbar regionChronic pain syndrome 0 Lucrecia Francis. [address], [place], [address], [place]. tel:[phone] Referring Provider: Avtar Coulter, [address] [place], [address]. tel:[phone] [facility], [address], [place], [place], [address], [place] tel:[phone] [facility] Low back pain 9 Jessica Brennan. [address], [place], [address], [place]. tel:[phone] Referring Provider: Avtar Coulter, [address] [facility], [place], [address]. tel:[phone] Psychiatric Diagnostic Evaluation [facility], [address], [place], [place], [address], [place] tel:[phone] [facility] Pain disorder with related psychological factors 9 Wilma Lemons. [address], [place], [place], [address], [place]. tel:[phone] Referring Provider: Avtar Coulter, [address] [place], [address]. tel:[phone] New Pt Eval 30 Min [facility], [facility], [address], [place], [place], [address], [place] tel:[phone] [facility] back pain (chief complaint) Low back painChronic pain syndrome 9 Lynne Swanson. [address], [place], [address], [place]. tel:[phone] Referring Provider: Avtar Coulter, [address] [facility], [place], [address]. tel:[phone] Est Pt Eval 15 Min [facility], [facility], [address], [place], [place], [address], [place] tel:[phone] [facility] Low back painOther intervertebral disc degeneration, lumbar regionSpondylo sis without myelopathy or radiculopathy, lumbosacral regionSpondylo sis without myelopathy or radiculopathy, lumbar region 6 Robyn M. [address], [facility], [place], [address], [place]. tel:[phone] Referring Provider: Beba Vernon, [address], [place], [address]. tel:[phone] [facility], [address], [place], [address], [place] tel:[phone] [facility] [place] Spondylosis without myelopathy or radiculopathy, lumbar regionSpondylo sis without myelopathy or radiculopathy, lumbosacral regionOther intervertebral disc degeneration, lumbar regionLow back pain 6 Ambrocio Billings. [address], [place], [place], [address], [place]. tel:[phone] Referring Provider: Manuelito Albrecht, [address], [place], [address]. tel:[phone] [facility], [address], [place], [place], [address], [place] tel:[phone] [facility] No Information 6 Ambrocio Billings. [address], [place], [place], [address], [place]. tel:[phone] Referring Provider: Manuelito Albrecht, [address], [place], [address]. tel:[phone] Est Pt Eval 15 Min [facility], [address], [place], [place], [address], [place] tel:[phone] [facility] Intervertebral disc disorders w radiculopathy, lumbar regionLow back painOther intervertebral disc degeneration, lumbar region 6 Robyn Coulter. [address], [facility], [place], [address], [place]. tel:[phone] Referring Provider: Beba Vernon, [address], [place], [address]. tel:[phone] [facility], [address], [place], [address], [place] tel:[phone] [facility] Other intervertebral disc degeneration, lumbar regionLow back painInterverte bral disc disorders w radiculopathy, lumbar region 6 Ambrocio Billings. [address], [place], [place], [address], [place]. tel:[phone] Referring Provider: Manuelito Albrecht, [address], [place], [address]. tel:[phone] [facility], [address], [place], [place], [address], [place] tel:[phone] [facility] [place] No Information 6 Ambrocio Billings. [address], [place], [place], [address], [place]. tel:[phone] Referring Provider: Beba Vernon, [address], [place], [address]. tel:[phone] [facility], [address], [place], [place], [address], [place] tel:[phone] [facility] [address] No Information 5 Janeen Yoder. [address], [place], [place], [address], [place]. tel:[phone] Referring Provider: Beba Janeen, [address], [place], [address]. tel:[phone] [facility], [address], [place], [place], [address], [place] tel:[phone] [place] [facility] [address] No Information Aug-1 5 Janeen Beba. [address], [address], [place], [place], [address], [place]. tel:[phone] Referring Provider: Beba Vernon, [address], [place], [address]. tel:[phone] [facility], [address], [place], [place], [address], [place] tel:[phone] [facility] No Information 5 Janeen Beba. [address], [place], [place], [address], [place]. tel:[phone] Referring Provider: Beba Janeen, [address], [place], [address]. tel:[phone] [facility], [address], [place], [place], [address], [place] tel:[phone] [facility] No Information Oct-0 5 Janeen Beba. [address], [address], [place], [place], [address], [place]. tel:[phone] Referring Provider: REFERRAL SELF, MAJO. [facility], [address], [place], [address], [place] tel:[phone] [facility] [place] No Information 5 Ambrocio Billings. [address], [place], [place], [address], [place]. tel:[phone] Referring Provider: Manuelito Albrecht, [address], [place], [address]. tel:[phone] [facility], [address], [place], [place], [address], [place] tel:[phone] [facility] No Information 5 Ambrocio Billings. [address], [place], [place], [address], [place]. tel:[phone] Referring Provider: Manuelito Albrecht, [address], [place], [address]. tel:[phone] [facility], [address], [place], [place], [address], [place] tel:[phone] [facility] No Information 5 Janeen Yoder. [address], [place], [place], [address], [place]. tel:[phone] Referring Provider: REFERRAL OMA, MAJO. [facility], [address], [place], [place], [address], [place] tel:[phone] [facility] 7390 No Information 5 Janeen Yoder. [address], [address], [place], [place], [address], [place]. tel:[phone] Referring Provider: Beba Vernon, [address], [place], [address]. tel:[phone] Est Pt Eval 15 Min [facility], [address], [place], [place], [address], [place] tel:[phone] [facility] No Information 5 Qamar Rock. [address], [place], [address], [place]. tel:[phone] Referring Provider: Shweta Kiran, [address] [facility], [place], [address]. tel:[phone] [facility], [address], [place], [place], [address], [place] tel:[phone] [facility] 7390 No Information 5 Peterson Vang. [address], [place], [place], [address], [place]. tel:[phone] Referring Provider: Ciera Winkler PT, [address], [place], [place], [address]. tel:[phone] [facility], [address], [place], [address], [place] tel:[phone] [facility] [place] No Information 5 Ambrocio Billings. [address], [address], [place], [place], [address], [place]. tel:[phone] Referring Provider: Manuelito Albrecht, [address], [place], [address]. tel:[phone] [facility], [address], [place], [place], [address], [place] tel:[phone] [facility] [place] No Information 5 Ambrocio Billings. [address], [address], [place], [place], [address], [place]. tel:[phone] Referring Provider: Manuelito Albrecht, [address], [place], [address]. tel:[phone] [facility], [address], [place], [place], [address], [place] tel:[phone] [facility] 7390 No Information 5 Janeen Yoder. [address], [address], [place], [place], [address], [place]. tel:[phone] Referring Provider: Beba Vernon, [address], [place], [address]. tel:[phone] [facility], [address], [place], [place], [address], [place] tel:[phone] [facility] 7390 No Information 5 Janeen Yoder. [address], [place], [place], [address], [place]. tel:[phone] Referring Provider: Beba Vernon, [address], [place], [address]. tel:[phone] [facility], [address], [place], [place], [address], [place] tel:[phone] [facility] 7390 No Information 5 [facility]. [address], [place], [place], [address], [place]. tel:[phone] Referring Provider: Manuelito Albrecht, [address], [place], [address]. tel:[phone] Est Pt Eval 25 Min [facility], [address], [place], [place], [address], [place] tel:[phone] [facility] No Information Aug-0 5 Qamar Rock. [address], [place], [address], [place]. tel:[phone] Referring Provider: Shweta Kiran, [address], [place], [address]. tel:[phone] [facility], [address], [place], [address], [place] tel:[phone] [facility] No Information July-0 5 Ambrocio Billings. [address], [address], [place], [place], [address], [place]. tel:[phone] Referring Provider: Manuelito Albrecht, [address], [place], [address]. tel:[phone] New Pt Eval 45 Min [facility], [facility], [address], [place], [place], [address], [place] tel:[phone] [facility] No Information 0 5 Ambrocio Billings. [address], [address], [place], [place], [address], [place]. tel:[phone] Referring Provider: Manuelito Albrecht, [address], [place], [address]. tel:[phone] [facility], [facility], [address], [place], [place], [address], [place] tel:[phone] [facility] No Information 0 5 Ambrocio Billings. [address], [place], [place], [address], [place]. tel:[phone] Referring Provider: Manuelito Albrecht, [address] [facility] [address], [place], [address]. tel:[phone] Family History Family Member Type Diagnosis Age At Onset Mother Problem (finding) diabetes brielle ryan in first degree relative Mother Problem (finding) asthma Payers Payer name Insurance type Covered republican ID Authorluis aa tiziyad(s) [employer] [facility] Medicare Solutions [id number] [employer] HMO 16 [id number] Social History Type Description Quantity Date Captured [...] MR I - Lumbar Spine W/O Contrast ([id number]), Ordered on: Ordered Future Order: Radiology Order MR I - Lumbar Spine W/O Contrast ([id number]), Ordered on: Ordered History Of Present Illness [...] compared to 05/27/2021. No other interval change. Studies Reviewed MRI, lumbar spi ne, w/o contrast performed on 05/27/2021. Result: CONCLUSION:1 Moderate-sized 4 mm left paracentral disc protrusion at L5-S1 without neural impingement.2. L5-S1, L4-5 and L3-4 disc degeneration with moderate mixed discogenic signal changes on the left at L5-S1.3. No significant central or foraminal stenosis and no neural impingement.4. No neoplasm, fracture or infection. back pain Onset: ongoing f or many years. The problem is worsening. It occurs persistently. Location of pain is lower back.There is no radiation of pain. The patient describes the pain as an ache and sharp. Symptoms are aggravated by prolonged standing and walking.The patient denies relieving factors. back pain (comments) Comments: Ck teague is a 42 year old woman and a previous [facility] patient present in the clinic with chronic back pain. Her last injection at [facility] was a bilateral L4-L5 transforaminal lumbar epidural steroid injection in August of 2019. Since then she's completed pool therapy at [facility]. Her pain has gradually increased in frequency and severity. She is currently managing her pain with gabapentin 400mg 3x/day. She is interested in repeating a lumbar epidural steroid injection and restarting physical therapy which we will order today. back pain Severity level i s 7. [...] you!- Schedule lumbar epidural steroid injection*Talk to hotel front desk clerk or call [phone] to schedule- Follow up with pool therapy [...] , adult -Requested medical r ecords from [facility] -Order MRI of the lumbar spine [...]
[2024-03-22 11:46] VITALS: BP 154/101; BMI 53.2
--- NOTE | 2024-09-25 11:08 | ECG_ITS ---
[facility] Test Date: 2024-09-25 Pat Name: Betsey Tellez Department: Room: Gender: Female Clinical Analyst: : 1980 Requested By: Saige Kiran Order Number: [id number] Jassi MD: Rosaura Wesley M.D. Measurements Intervals [place] Rate: 99 P: 37 WA: 161 QRS: 37 QRSD: 81 T: 28 QT: 341 QTc: 439 Interpretive Statements SINUS RHYTHM NONSPECIFIC T-WAVE ABNORMALITY Compared to ECG 10/12/2023 21:32:00 Sinus tachycardia no longer present T-wave abnormality still present Electronically Signed On 09-25-2024 16:43:47 CDT by Rosaura Wesley M.D. [email or web address]
[2024-09-25 11:10] VITALS: BP 108/56; PULSE 102; RESP 16; TEMP 36.8; O2SAT 95; BMI 52.5
--- NOTE | 2024-09-25 11:17 | ED.C_ITS ---
HPI - Psych 2 General: Chief Complaint: Psychiatric Symptoms Stated Complaint: SI Time Seen by Provider: 09/25/24 11:08 History of Present Illness: 43-year-old female with a history of bip olar disorder, obesity, type 2 diabetes, and peripheral neuropathy who presents emergency room with suicidal thoughts. She arrives by ambulance. She says she might overdose on her pills. She has been admitted for psychiatric problems in the past. Related Data Home Medications ?Medication ?Instructions ?Recorded ?Confirmed galcanezumab-gnlm 120 mg/mL 120 mg SUBCUT .Q28D 09/25/24 subcutaneous pen injector (Emgality Pen) nystatin 100,000 unit/gram topical See Rx Instructions .Route 11/23/23 09/25/24 cream .COMPLEX PRN Skin Irritation triamcinolone acetonide 0.1 % See Rx Instructions .Rou te .COMPLEX 11/23/23 09/25/24 topical cream fluticasone propionate 230 2 puff inhalation BID 09/2509/25/24 mcg-salmeterol 21 mcg/actuation HFA inhaler (Advair HFA) Previous Rx's ?Medication ?Instructions ?Recorded Diabetic Shoes #1 ea 01/09/24 albuterol sulfate 90 mcg/actuation 2 puff inhalation Q ID PRN 03/25/24 aerosol inhaler shortness of breath or wheez ing #6.7 grams metformin 500 mg tablet,extended 1,000 mg (2 x 500 mg) PO .@9AM 30 03/25/24 release 24 hr days #60 tabs budesonide-formoterol HFA 160 2 puff inhalation BID #1 0.2 grams 04/19/24 mcg-4.5 mcg/actuation aerosol inhaler (Symbicort) sumatriptan succinate 50 mg tablet See Rx Instructions .Route 05/30/24 .COMPLEX #10 tabs oxcarbazepine 300 mg tablet 300 mg PO BEDTIME 30 days #30 tabs 06/11/24 semaglutide 1 mg/dose (4 mg/3 mL) 1 mg (0.75 mL) SUBCU T Q7D #3 mL 06/24/24 subcutaneous pen injector (Ozempic) brexpiprazole 1 mg tablet (Rexulti) 1 mg PO DAILY #30 tabs 07/26/24 bupropion HCl 150 mg 24 hr tablet, 450 mg (3 x 150 mg) PO DAILY 30 07/26/24 extended release days #90 tabs buspirone 10 mg tablet 20 mg (2 x 10 mg) PO TID 30 days 07/26/24 #180 tabs fluoxetine 40 mg capsule 40 mg PO DAILY 30 days #30 c aps 07/26/24 gabapentin 400 mg capsule 400 mg PO TID 30 days #90 ca ps 07/26/24 ropinirole 2 mg tablet 2 mg PO BEDTIME 30 days #30 tabs 07/26/24 mirtazapine 30 mg tablet (Remeron) 30 mg PO .HS #30 ta bs 08/13/24 cetirizine 10 mg tablet 10 mg PO .@9AM 30 days #30 t abs 09/10/24 omeprazole 40 mg capsule,delayed 40 mg PO BID 30 days #60 caps 09/10/24 release rosuvastatin 10 mg tablet 10 mg PO DAILY 30 days #30 t abs 09/10/24 Allergies Allergy/AdvReac Type Severity Reaction Status Date / Time escitalopram (From Lexapro) Allergy ADR-Nausea Verified 07/26/24 14:34 latex Allergy ALGY-Rash Verified 07/26/24 14:34 eszopiclone (From Lunesta) AdvReac ADR-Migrain Verified 07/26/24 14:34 e lurasidone (From Latuda) AdvReac ADR-Nausea Verified 07/26/24 14:34 trazodone AdvReac ADR-Migrain Verified 07/26/24 14:34 e Review of Systems 2 Narrative: Constitutional symptoms: Negative except as documented in HPI. Skin symptoms: Negative except as documented in HPI. Eye symptoms: Negative except as documented in HPI. ENMT symptoms: Negative except as documented in HPI. Respiratory symptoms: Negative except as documented in HPI. Cardiovascular symptoms: Negative except as documented in HPI. Gastrointestinal symptoms: Negative except as documented in HPI. Genitourinary symptoms: Negative except as documented in HPI. Musculoskeletal symptoms: Negative except as documented in HPI. Neurologic symptoms: Negative except as documented in HPI. Psychiatric symptoms: Negative except as documented in HPI. Endocrine symptoms: Negative except as documented in HPI. PFSH ED 2 PFSH: Medical History (Updated 09/25/24 @ 11:47 by Saige Floyd MD) Bipolar 2 disorder Psychiatric care Alcohol dependence, in remission Social History Smoking and tobacco/nicotine status: former use of tobacco/nicotine (quit 5 years ago) Substance/Drug Use: former Date of last use: 6 years ago Adopted: No Caregiver/support person: No Lives independently: Yes Housing: Manufactured/Mobile home service: No Current occupational status: unemployed Pets and animals: Yes Pets & animals: cat(s) Leisure activites: music, games and other Leisure activities details: TV and writing to pen pals Do you think of yourself as: Straight/Heterosexual Rose/Orthodox: Restorationist Special rose needs: No Agree to transfusion: Yes Physical Exam 2 Narrative: EXAM NARRATIVE: General: Alert. no acute distress Skin: Warm, dry Head: Normocephalic, atraumatic. Neck: Supple, trachea midline. Eye: Extraocular movements are intact. Ears, nose, mouth and throat: Oral mucosa moist. Cardiovascular: Regular rate and rhythm, Normal peripheral perfusion. Respiratory: Lungs are clear to auscultation, respirations are non-labored, breath sounds are equal, Symmetrical chest wall expansion. Gastrointestinal: Soft, Nontender, Non distended Musculoskeletal: Normal ROM, no deformity. Neurological: Alert and oriented. No focal neurological deficit observed. Psychiatric: Cooperative, depressed, expresses suicidal ideation. Course 2 Vital Signs: Vital signs: Vital Signs Temperature 98.3 F 09/25/24 11:10 Pulse Rate 102 H 09/25/24 11:10 Respiratory Rate 16 09/25/24 11:10 Blood Pressure 108/56 09/25/24 11:10 Pulse Oximetry 95 09/25/24 11:10 Oxygen Delivery Me thod Room Air 09/25/24 11:10 MDM - Psych Medical Decision Making Differential diagnosis: Patient with reported depression and suicidal ideation. concerns for infection, alcohol intoxication, cardiac issues or other medical problems prior to psychiatric admission. Workup: labwork, ekg ordered to evaluate the pathologies and to clear the patient medically prior to psychiatric admission EKG: Time 11:12 AM. Rate 99. Normal sinus rhythm, No ST-T changes, no ectopy, normal [place] & QRS intervals, This was reviewed and interpreted by myself the ER physician at 11:15 AM. Lab Review: Laboratory results were reviewed and interpreted by myself the emergency room physician. - Medically cleared. - EKG shows no ischemic changes. - Blood alcohol level is negative, -Tylenol and salicylate levels are negative. - Drug screen is negative - No signs of infection, urinalysis clear and white count is not elevated - No anemia. - BUN and creatinine are within normal limits. Consultation: I spoke with Dr. Godfrey who is on-call for psychiatry agrees to admission. Assessment and plan: Depression Suicidal ideation -Admission to neuropsychiatric unit for continued evaluation and treatment. - All lab work was reviewed and interpreted personally by myself, the ER physician - Evaluation and treatment of this problem were appropriate in the emergency setting Lab Data 09/25/24 11:21 09/25/24 11:21 Laboratory Results WBC 11.79 10^3/uL (3.29-11.43) H 09/25/24 11:21 RBC 4.93 10^6/uL (3.85-5.65) 09/25/24 11:21 Hgb 14.80 g/dL (11.27-16.99) 09/25/24 11:21 Hct 45.3 % (36-47) 09/25/24 11:21 MCV 91.9 fl (85-98) 09/25/24 11:21 MCH 30.0 pg (27-33) 09/25/24 11:21 MCHC 32.7 g/dL (30-55) 09/25/24 11:21 RDW 12.4 % (12.1-15.1) 09/25/24 11:21 Plt Count 321 10^3/cmm (157-399) 09/25/24 11:21 MPV 8.9 fL (7.4-10.4) 09/25/24 11:21 Neut % (Auto) 51.8 % 09/25/24 11:21 Lymph % (Auto) 36.1 % 09/25/24 11:21 [place] % (Auto) 6.7 % 09/25/24 11:21 Eos % (Auto) 4.2 % 09/25/24 11:21 Baso % (Auto) 0.5 % 09/25/24 11:21 Neut # (Auto) 6.10 10^3/uL (1.8-7.7) 09/25/24 11:21 Lymph # (Auto) 4.3 10^3/uL (0.8-4.8) 09/25/24 11:21 [place] # (Auto) 0.8 10^3/uL (0.2-0.9) 09/25/24 11:21 Eos # (Auto) 0.5 10^3/uL (0.0-0.8) 09/25/24 11:21 Baso # (Auto) 0.1 10^3/uL (0.0-0.1) 09/25/24 11:21 Nucleated RBC % (auto) 0 % 09/25/24 11:21 Nucleated RBCs # 0.0 /100WBC 09/25/24 11:21 Sodium 139 mmol/L (136-145) 09/25/24 11:21 Potassium 4.2 mmol/L (3.5-5.1) 09/25/24 11:21 Chloride 102 mmol/L (98-107) 09/25/24 11:21 Carbon Dioxide 23 mmol/L (22-29) 09/25/24 11:21 Anion Gap 18.2 (5-19) 09/25/24 11:21 BUN 5 mg/dL (6-20) L 09/25/24 11:21 Creatinine 0.6 mg/dL (0.5-0.9) 09/25/24 11:21 GFR Calculation 108.6 mL/min (90-130) 09/25/24 11:21 Glucose 105 mg/dL (65-115) 09/25/24 11:21 Calculated Osmolality 286 mOsm/kg (285-295) 09/25/24 11:21 Calcium 8.9 mg/dL (8.5-10.5) 09/25/24 11:21 Total Bilirubin 0.2 mg/dL (0.15-1.2) 09/25/24 11:21 AST 49 U/L (0-32) H 09/25/24 11:21 ALT 48 U/L (0-33) H 09/25/24 11:21 Alkaline Phosphatase 109 U/L (35-105) H 09/25/24 11:21 Total Protein 7.0 g/dL (6.6-8.7) 09/25/24 11:21 Albumin 3.8 g/dL (3.5-5.2) 09/25/24 11:21 Globulin 3.2 g/dL (1.3-4.6) 09/25/24 11:21 TSH 1.87 uIU/mL (0.27-4.20) 09/25/24 11:21 Urine Color Yellow (Yellow) 09/25/24 12:51 Urine Appearance Clear (CLEAR) 09/25/24 12:51 Urine pH 6.0 (5-7) 09/25/24 12:51 Ur Specific [place] 1.015 (1.005-1.030) 09/25/24 12:51 Urine Protein Trace (Negative) A 09/25/24 12:51 Urine Glucose (UA) 1+ (Normal) H 09/25/24 12:51 Urine Ketones Negative (Negative) 09/25/24 12:51 Urine Blood Negative (Negative) 09/25/24 12:51 Urine Nitrate Negative (Negative) 09/25/24 12:51 Urine Bilirubin Negative (Negative) 09/25/24 12:51 Urine Urobilinogen 0.2 mg/dL (Negative) 09/25/24 12:51 Ur Leukocyte Esterase Negative (Negative) 09/25/24 12:51 Urine RBC 0-2 /hpf (0-2) 09/25/24 12:51 Urine WBC 6-10 /hpf (0-5) 09/25/24 12:51 Ur Squamous Epith Cells 6-10 /hpf (0-5) 09/25/24 12:51 Amorphous Sediment Not Reportable 09/25/24 12:51 Urine Bacteria Trace /hpf (NONE) 09/25/24 12:51 Hyaline Casts 1.21 /lpf 09/25/24 12:51 Salicylates < 0.3 mg/dL (3-10) L 09/25/24 11:21 Acetaminophen < 5.0 ug/mL (10-30) L 09/25/24 11:21 Ethyl Alcohol < 10 mg/dL (0-10) 09/25/24 11:21 No radiology studies performed this visit Discharge Plan Discharge Patient Disposition: Admitted As Inpatient Clinical Impression: Depression, Suicidal ideation Condition: Stable Coding Level of Care Code ED [employer]er for Kierra Juarez
[2024-09-25 11:33] LABS: Hematocrit 45.3 % (36-47); Hemoglobin 14.80 g/dL (11.27-16.99); Mean Corpuscular HGB Conc 32.7 g/dL (30-55); Mean Corpuscular Hemoglobin 30.0 pg (27-33); Mean Corpuscular Volume 91.9 fl (85-98); Nucleated Red Blood Cells % 0 %; Platelet Count 321 10^3/cmm (157-399); Red Blood Count 4.93 10^6/uL (3.85-5.65); White Blood Count 11.79 10^3/uL (3.29-11.43)
--- OUTSIDE RECORDS SUMMARY | 2024-09-25 11:42 | XMS_ITS ---
Author Organization Unknown Allergies, Adverse Reactions, Alerts Substance Reaction Status Noinformation - Inactive Medications Medication Instructions Effective Dates (start - sto p) Status NoInformation Completed Problems Problem Status Start date Recorded date Problem Inactive Procedures Procedure Date NoInformation Results No information Plan of Treatment Patient Care team information Name Category Status Period Participants - Episode of care-focused care team Proposed 07-05-17 - - Episode of care-focused care team Proposed 07-05-09 - - - Proposed period not known - Notes Author - Date Note - no notes - no notes
[2024-09-25 12:05] LABS: Alanine Aminotransferase 48 U/L (0-33); Albumin Level 3.8 g/dL (3.5-5.2); Alkaline Phosphatase 109 U/L (35-105); Anion Gap 18.2 (5-19); Aspartate Amino Transferase 49 U/L (0-32); Blood Urea Nitrogen 5 mg/dL (6-20); Calcium 8.9 mg/dL (8.5-10.5); Carbon Dioxide 23 mmol/L (22-29); Chloride 102 mmol/L (98-107); Creatinine Clr Calc Pharmacy 172.8976; Globulin 3.2 g/dL (1.3-4.6); Glucose 105 mg/dL (65-115); Osmolality Calculated 286 mOsm/kg (285-295); Potassium 4.2 mmol/L (3.5-5.1); Sodium 139 mmol/L (136-145); Thyroid Stimulating Hormone 1.87 uIU/mL (0.27-4.20); Total Protein 7.0 g/dL (6.6-8.7)
[2024-09-25 12:09] LABS: Acetaminophen < 5.0 ug/mL (10-30); Alcohol Level < 10 mg/dL (0-10); Salicylate < 0.3 mg/dL (3-10)
[2024-09-25 13:02] LABS: Glucose Urine UA 1+ (Normal); Nitrate Urine Negative (Negative); Specific Gravity, Urine 1.015 (1.005-1.030)
[2024-09-25 13:04] LABS: Add Urine Microscopic? YES
--- NOTE | 2024-09-25 15:03 | PC.NURSE ---
Involuntary 96 hour hold rights read and reviewed with patient. Patient verbalized understandings. Copy of rights was given to patient.
[2024-09-25 15:39] LABS: HCG Qualitative Urine. Negative (Negative)
[2024-09-25 15:44] LABS: PCP Screen Urine Negative (Negative)
--- NOTE | 2024-09-25 17:55 | PC.NURSE ---
report called to Olive in NPU, no further questions.
--- NOTE | 2024-09-25 19:22 | PC.ADMIT ---
[email or web address] Admission Note:Pt state that her mother on August 21 from a short 3-4 month fischer of breast cancer. She states that she has been feeling very depressed with SI, but has no plan. Her UDS was negative in ER. She has been calm and cooperative. 96 hour hold that will end 10/01@1417. She states that she has low back pain that she rates a 8/10 I offered her tylenol and she wanted to get some of that. Pt is diabetic with gastroparesis, GERD, and Asthma. She states that she has had a tubal ligation and a cholecystectomy. Pt states that she has been clean from alcohol and marijuana for 6 year. The patient,Betsey Tellez,43 y/o, was given written information regarding hospital policies, unit procedures and contact persons. Patient's smoking status: former smoker. Vital Signs - 8 hr 09/25/24 18:43 Oxygen Delivery Method Room Air
[2024-09-25 19:38] VITALS: BP 139/96; PULSE 102; RESP 20; TEMP 36.4; O2SAT 95
[2024-09-26 06:00] VITALS: BP 134/85; PULSE 95; RESP 20; TEMP 36.4; O2SAT 96
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
[2024-09-26 11:38] VITALS: PULSE 98; RESP 18; O2SAT 97
[2024-09-26 14:00] VITALS: BP 132/89; PULSE 101; RESP 17; TEMP 36.6; O2SAT 95
[2024-09-26 15:16] VITALS: PULSE 95; RESP 16; O2SAT 97
[2024-09-26 19:52] VITALS: PULSE 98; RESP 16; O2SAT 98
[2024-09-26 20:45] VITALS: BP 139/91; PULSE 116; RESP 20; TEMP 36.8; O2SAT 95
[2024-09-27] VITALS (7 sets, daily range): BP systolic 129–140; BP diastolic 85–94; PULSE 83–110; RESP 17–20; TEMP 36.4–36.8; O2SAT 94–97
--- NOTE | 2024-09-27 14:11 | P.NPUPN_ITS ---
Subjective NPU 2 Subjective: Patient presented today reporting that she is working with the social work team on possible residential options. She reports that she is continuing to have anxiety and that in general her medications have been helpful but she feels they could be better. She denied any side effects to her medication and reports that she is hopeful that they will fine a place for her to moved to that would not have her being so alone. Mental Status Exam 2 MSE Comments: This is an obese versus morbidly obese white female, in hospital scrubs with limited grooming but adequate eye contact. Very poor hygiene with body odor identifiable throughout the interview. No abnormal movements, except for mild psychomotor retardation. Cooperative with exam in mild distress. Speech was mostly decreased rate and volume. Mood described as depressed and anxious; affect congruent and slightly subdued. Thought process, organized. Thought content: patient denied current suicidal or homicidal ideation, there were no delusions reported or noted, patient denied auditory or visual hallucinations. Patient endorses that the of her mother has led to her being alone and she is not managing that well. Attention and concentration were intact and memory appeared reliable, but none were formally tested. She was alert and oriented times 3. Insight and judgment appear limited. Impulse control is impaired. Vitals/I&O/Wt Last Vital Signs Temp 98.1 F 09/27/24 06:00 Pulse 110 H 09/27/24 11:21 Resp 18 09/27/24 11:21 BP 129/94 09/27/24 06:00 Pulse Ox 96 09/27/24 11:21 O2 Del Method Room Air 09/27/24 11:21 Data NPU 09/25/24 11:21 09/25/24 11:21 A&P Assessment and plan 1. Generalized anxiety disorder: 2. History of autism: 3. PTSD (post-traumatic stress disorder): 4. Major depressive disorder, recurrent: Plan: This is a 43-year-old white female with a long history of mental health treatment with multiple diagnoses reported with inpatient and outpatient services throughout her life. The patient has a history of ADHD, depression, and autism, with recent suicidal ideations and high levels of anxiety. The patient also exhibits obsessive-compulsive tendencies. The patient has a history of substance use, including tobacco, alcohol, and cannabis, all of which ceased five years ago. The patient is currently living alone. We will evaluate for need for medication changes 1. Continue current medications. 2. Continue to-15 minute checks, 3.? Encourage individual, group and milieu therapy. 4.? Obtain collateral information. 5. Will look at whether a [place] [facility] [place] setting or some kind of communal/residential facility may serve her better than living alone. PDMP PDMP Reviewed: Not Reviewed Involuntary Hold Information 2 Hold Status: Legal Status: 96 Hour Hold Date/Time Hold Expires: 10/01/24 @ 14:17 96 Hour Hold: 96 Hour Involuntary Admission: Yes Attestations NPU 2 Medical Necessity Statement*: Inpatient hospitalization is medically necessary and the clinically appropriate intervention, at this time. We will monitor medications and make changes as indicated. Likely length of stay is 4-6 days. Coding Level of Care Code Acute Code for [facility] Fwd Diagnoses Generalized anxiety disorder F41.1 History of autism Z86.59 PTSD (post-traumatic stress disorder) F43.10 Major depressive disorder, recurrent F33.9
[2024-09-28] VITALS (8 sets, daily range): BP systolic 126–134; BP diastolic 87–90; PULSE 89–107; RESP 16–20; TEMP 36.6–36.8; O2SAT 95–97
--- NOTE | 2024-09-28 07:24 | P.NPUPN_ITS ---
Subjective NPU 2 Subjective: Patient presented today reporting that she is doing okay. We discussed her anxiety and discussed the risks, benefits and alternatives of increasing her BuSpar to 30 mg p.o. 3 times daily and she understood and agreed to proceed as documented in this note. She continued to be anxious per staff reports and direct observation. Also was quite focused on logistics of her going to some kind of residential facility but we discussed the fact that there may be some time. Where she is going back to her current situation awaiting an opening in some facility. She denied any side effects to her medications. Mental Status Exam 2 MSE Comments: This is an obese versus morbidly obese white female, in hospital scrubs with limited grooming but adequate eye contact. No abnormal movements, except for mild psychomotor retardation. Cooperative with exam in mild distress. Speech was mostly decreased rate and volume. Mood described as depressed and anxious; affect congruent and slightly subdued. Thought process, organized. Thought content: patient denied current suicidal or homicidal ideation, there were no delusions reported or noted, patient denied auditory or visual hallucinations. Patient endorses that the of her mother has led to her being alone and she is not managing that well. Attention and concentration were intact and memory appeared reliable, but none were formally tested. She was alert and oriented times 3. Insight and judgment appear limited. Impulse control is impaired. Vitals/I&O/Wt Last Vital Signs Temp 98.0 F 09/28/24 06:00 Pulse 101 09/28/24 06:00 Resp 18 09/28/24 06:00 BP 134/87 09/28/24 06:00 Pulse Ox 97 09/28/24 06:00 O2 Del Method Room Air 09/28/24 06:00 Weight last 48 hrs Weight 134.717 kg Data NPU 09/25/24 11:21 09/25/24 11:21 A&P Assessment and plan 1. Generalized anxiety disorder: 2. History of autism: 3. PTSD (post-traumatic stress disorder): 4. Major depressive disorder, recurrent: Plan: This is a 43-year-old white female with a long history of mental health treatment with multiple diagnoses reported with inpatient and outpatient services throughout her life. The patient has a history of ADHD, depression, and autism, with recent suicidal ideations and high levels of anxiety. The patient also exhibits obsessive-compulsive tendencies. The patient has a history of substance use, including tobacco, alcohol, and cannabis, all of which ceased five years ago. The patient is currently living alone. We will evaluate for need for medication changes 1. Continue current medications. 2. Continue to-15 minute checks, 3.? Encourage individual, group and milieu therapy. 4.? Obtain collateral information. 5. Will look at whether a correction setting or some kind of communal/residential facility may serve her better than living alone. PDMP PDMP Reviewed: Not Reviewed Involuntary Hold Information 2 Hold Status: Legal Status: 96 Hour Hold Date/Time Hold Expires: 10/01/24 @ 14:17 96 Hour Hold: 96 Hour Involuntary Admission: Yes Attestations NPU 2 Medical Necessity Statement*: Inpatient hospitalization is medically necessary and the clinically appropriate intervention, at this time. We will monitor medications and make changes as indicated. Likely length of stay is 4-6 days. Coding Level of Care Code Acute Code for [facility] Fwd Diagnoses Generalized anxiety disorder F41.1 History of autism Z86.59 PTSD (post-traumatic stress disorder) F43.10 Major depressive disorder, recurrent F33.9
--- NOTE | 2024-09-28 12:11 | PC.NURSE ---
Dr. Godfrey gave verbal order to increase Buspirone to 30mg PO TID
[2024-09-29] VITALS (8 sets, daily range): BP systolic 134–138; BP diastolic 87–97; PULSE 89–100; RESP 16–20; TEMP 36.4–36.9; O2SAT 96–100
--- NOTE | 2024-09-29 11:24 | W.PM.NPUPNS ---
Subjective NPU Subjective: Patient presented today reporting that things are going fine. She did report depression is still present and she is maxed out on her Wellbutrin XL. We talked about increasing her Rexulti to 2 mg p.o. daily and then considering increases in her Prozac and she understood and agreed to proceed as documented in this note. She denied any side effects or medication. Mental Status Exam MSE Comments: This is an obese versus morbidly obese white female, in hospital scrubs with limited grooming but adequate eye contact. No abnormal movements, except for mild psychomotor retardation. Cooperative with exam in mild distress. Speech was mostly decreased rate and volume. Mood described as depressed and anxious; affect congruent and slightly subdued. Thought process, organized. Thought content: patient denied current suicidal or homicidal ideation, there were no delusions reported or noted, patient denied auditory or visual hallucinations. Patient endorses that the of her mother has led to her being alone and she is not managing that well. Attention and concentration were intact and memory appeared reliable, but none were formally tested. She was alert and oriented times 3. Insight and judgment appear limited. Impulse control is impaired. Vitals/I&O/Wt Last Vital Signs Temp 98.1 F 09/29/24 05:59 Pulse 100 H 09/29/24 05:59 Resp 20 H 09/29/24 05:59 BP 134/97 09/29/24 05:59 Pulse Ox 96 09/29/24 05:59 O2 Del Method Room Air 09/29/24 05:59 Weight last 48 hrs Weight 134.717 kg Data NPU 09/25/24 11:21 09/25/24 11:21 A&P Assessment and plan 1. Generalized anxiety disorder: 2. History of autism: 3. PTSD (post-traumatic stress disorder): 4. Major depressive disorder, recurrent: Plan: This is a 43-year-old white female with a long history of mental health treatment with multiple diagnoses reported with inpatient and outpatient services throughout her life. The patient has a history of ADHD, depression, and autism, with recent suicidal ideations and high levels of anxiety. The patient also exhibits obsessive-compulsive tendencies. The patient has a history of substance use, including tobacco, alcohol, and cannabis, all of which ceased five years ago. The patient is currently living alone. We will evaluate for need for medication changes 1. Continue current medications. Increase Rexulti to 2 mg p.o. daily 2. Continue to-15 minute checks, 3.? Encourage individual, group and milieu therapy. 4.? Obtain collateral information. 5. Will look at whether a nursing home setting or some kind of communal/residential facility may serve her better than living alone. PDMP PDMP Reviewed: Not Reviewed Involuntary Hold Information Hold Status: Legal Status: 96 Hour Hold Date/Time Hold Expires: 10/01/24 @ 14:17 96 Hour Hold: 96 Hour Involuntary Admission: Yes Attestations NPU Medical Necessity Statement*: Inpatient hospitalization is medically necessary and the clinically appropriate intervention, at this time. We will monitor medications and make changes as indicated. Likely length of stay is 4-6 days. Coding Level of Care Code Acute Code for g Fwd Diagnoses Generalized anxiety disorder F41.1 History of autism Z86.59 PTSD (post-traumatic stress disorder) F43.10 Major depressive disorder, recurrent F33.9
--- NOTE | 2024-09-29 18:25 | PC.NURSE ---
Dr. Godfrey gave order to increase Rexulti to 2mg PO
[2024-09-30 06:00] VITALS: BP 133/93; PULSE 113; RESP 19; TEMP 36.7; O2SAT 94
[2024-09-30 08:00] VITALS: PULSE 97; RESP 16; O2SAT 99
[2024-09-30 11:22] VITALS: PULSE 92; RESP 17; O2SAT 98
--- NOTE | 2024-09-30 12:51 | P.NPUPN_ITS ---
Subjective NPU 2 Subjective: Patient presented today reporting that she is doing a little bit better. We had discussed the risks, benefits and alternatives of increasing her Rexulti to 2 mg p.o. daily and she understood and agreed to proceed as documented in this note. She is working with the social work team on a few residential options and there is some chance of her being excepted as early as tomorrow. She denied any side effects to her medication. Mental Status Exam 2 MSE Comments: This is an obese versus morbidly obese white female, in hospital scrubs with limited grooming but adequate eye contact. No abnormal movements, except for mild psychomotor retardation. Cooperative with exam in mild distress. Speech was mostly decreased rate and volume. Mood described as a little better; affect congruent and slightly subdued. Thought process, organized. Thought content: patient denied current suicidal or homicidal ideation, there were no delusions reported or noted, patient denied auditory or visual hallucinations. Patient endorses that the of her mother has led to her being alone and she is not managing that well. Attention and concentration were intact and memory appeared reliable, but none were formally tested. She was alert and oriented times 3. Insight and judgment appear limited. Impulse control is impaired. Vitals/I&O/Wt Last Vital Signs Temp 98.1 F 09/30/24 06:00 Pulse 92 09/30/24 11:22 Resp 17 09/30/24 11:22 BP 133/93 09/30/24 06:00 Pulse Ox 98 09/30/24 11:22 O2 Del Method Nasal Cannula 09/30/24 11:22 Weight last 48 hrs Weight 134.717 kg Data NPU 09/25/24 11:21 09/25/24 11:21 A&P Assessment and plan 1. Generalized anxiety disorder: 2. History of autism: 3. PTSD (post-traumatic stress disorder): 4. Major depressive disorder, recurrent: Plan: This is a 43-year-old white female with a long history of mental health treatment with multiple diagnoses reported with inpatient and outpatient services throughout her life. The patient has a history of ADHD, depression, and autism, with recent suicidal ideations and high levels of anxiety. The patient also exhibits obsessive-compulsive tendencies. The patient has a history of substance use, including tobacco, alcohol, and cannabis, all of which ceased five years ago. The patient is currently living alone. We will evaluate for need for medication changes 1. Continue current medications. Increased Rexulti to 2 mg p.o. daily 2. Continue to-15 minute checks, 3.? Encourage individual, group and milieu therapy. 4.? Obtain collateral information. 5. Will look at whether a [facility] setting or some kind of communal/residential facility may serve her better than living alone. Working with social work team on discharge options as there are some facilities considering taking her. PDMP PDMP Reviewed: Not Reviewed Involuntary Hold Information 2 Hold Status: Legal Status: 96 Hour Hold Date/Time Hold Expires: 10/01/24 @ 14:17 96 Hour Hold: 96 Hour Involuntary Admission: Yes Attestations NPU 2 Medical Necessity Statement*: Inpatient hospitalization is medically necessary and the clinically appropriate intervention, at this time. We will monitor medications and make changes as indicated. Likely length of stay is 1-4 days. Coding Level of Care Code Acute Code for g Fwd Diagnoses Generalized anxiety disorder F41.1 History of autism Z86.59 PTSD (post-traumatic stress disorder) F43.10 Major depressive disorder, recurrent F33.9
[2024-09-30 14:00] VITALS: BP 138/89; PULSE 110; RESP 16; TEMP 36.8; O2SAT 97
[2024-09-30 20:27] VITALS: BP 133/78; PULSE 105; RESP 18; TEMP 36.7; O2SAT 94
[2024-10-01] VITALS (8 sets, daily range): BP systolic 123–134; BP diastolic 79–86; PULSE 81–110; RESP 15–18; TEMP 36.6–36.7; O2SAT 94–97
--- NOTE | 2024-10-01 17:32 | P.NPUPN_ITS ---
Subjective NPU 2 Subjective: Patient presented today reporting that things are going fine. She identified that she is having an interview tomorrow and that everyone seems to believe that this is something that is going to happen. We discussed a plan to allow for discharge afterwards so that she can grab a few things and be prepared for this transition. She reports she is feeling better and more optimistic and is very hopeful this change will occur. She denied any side effects of her medication. Mental Status Exam 2 MSE Comments: This is an obese versus morbidly obese white female, in hospital scrubs with limited grooming but adequate eye contact. No abnormal movements, except for mild psychomotor retardation. Cooperative with exam in mild distress. Speech was mostly decreased rate and volume. Mood described as a little better; affect congruent and less subdued. Thought process, organized. Thought content: patient denied current suicidal or homicidal ideation, there were no delusions reported or noted, patient denied auditory or visual hallucinations. Patient endorses that the of her mother has led to her being alone and she is not managing that well. Attention and concentration were intact and memory appeared reliable, but none were formally tested. She was alert and oriented times 3. Insight and judgment appear limited. Impulse control is impaired. Vitals/I&O/Wt Last Vital Signs Temp 97.9 F 10/01/24 14:00 Pulse 90 10/01/24 15:59 Resp 18 10/01/24 15:59 BP 123/82 10/01/24 14:00 Pulse Ox 96 10/01/24 15:59 O2 Del Method Room Air 10/01/24 15:59 Data NPU 09/25/24 11:21 09/25/24 11:21 A&P Assessment and plan 1. Generalized anxiety disorder: 2. History of autism: 3. PTSD (post-traumatic stress disorder): 4. Major depressive disorder, recurrent: Plan: This is a 43-year-old white female with a long history of mental health treatment with multiple diagnoses reported with inpatient and outpatient services throughout her life. The patient has a history of ADHD, depression, and autism, with recent suicidal ideations and high levels of anxiety. The patient also exhibits obsessive-compulsive tendencies. The patient has a history of substance use, including tobacco, alcohol, and cannabis, all of which ceased five years ago. The patient is currently living alone. We will evaluate for need for medication changes 1. Continue current medications. Increased Rexulti to 2 mg p.o. daily 2. Continue to-15 minute checks, 3.? Encourage individual, group and milieu therapy. 4.? Obtain collateral information. 5. Will look at whether a longterm setting or some kind of communal/residential facility may serve her better than living alone. Working with social work team on discharge options as there are some facilities considering taking her. Patient has an interview tomorrow and there is a likelihood she will be excepted and we discussed the possibility of discharge after we get that information so that she can prepare for the transition. PDMP PDMP Reviewed: Not Reviewed Involuntary Hold Information 2 Hold Status: Legal Status: 96 Hour Hold Date/Time Hold Expires: 10/01/24 @ 14:17 96 Hour Hold: 96 Hour Involuntary Admission: Yes Attestations NPU 2 Medical Necessity Statement*: Inpatient hospitalization is medically necessary and the clinically appropriate intervention, at this time. We will monitor medications and make changes as indicated. Likely length of stay is 1-3 days. Coding Level of Care Code Acute Code for [facility] Fwd Diagnoses Generalized anxiety disorder F41.1 History of autism Z86.59 PTSD (post-traumatic stress disorder) F43.10 Major depressive disorder, recurrent F33.9
[2024-10-02 06:00] VITALS: BP 130/83; PULSE 96; RESP 18; O2SAT 96
[2024-10-02 14:00] VITALS: BP 148/88; PULSE 101; RESP 16; TEMP 37.5; O2SAT 97
--- NOTE | 2024-10-02 14:50 | P.NPUPN_ITS ---
Subjective NPU 2 Subjective: Patient presented today reporting that she is doing fine. She had her interview and has been accepted to the program. They will come by and pick her up tomorrow. The only thing to be figured out right now is how she is going to get the money that she will need to start the program. She has enough money to be in it but she does not have the entry fee right now which she said was possibly $256. Otherwise she was optimistic about the situation and endorsed the plan to go there. She denied any side effects of medication. Mental Status Exam 2 MSE Comments: This is an obese versus morbidly obese white female, in hospital scrubs with limited grooming but adequate eye contact. No abnormal movements, except for mild psychomotor retardation. Cooperative with exam in mild distress. Speech was mostly decreased rate and volume. Mood described as a little better; affect congruent and less subdued. Thought process, organized. Thought content: patient denied current suicidal or homicidal ideation, there were no delusions reported or noted, patient denied auditory or visual hallucinations. Patient endorses that the of her mother has led to her being alone and she is not managing that well. Attention and concentration were intact and memory appeared reliable, but none were formally tested. She was alert and oriented times 3. Insight and judgment appear limited. Impulse control is impaired. Vitals/I&O/Wt Last Vital Signs Temp 97.9 F 10/01/24 19:51 Pulse 96 10/02/24 06:00 Resp 18 10/02/24 06:00 BP 130/83 10/02/24 06:00 Pulse Ox 96 10/02/24 06:00 O2 Del Method Room Air 10/02/24 08:47 Data NPU 09/25/24 11:21 09/25/24 11:21 A&P Assessment and plan 1. Generalized anxiety disorder: 2. History of autism: 3. PTSD (post-traumatic stress disorder): 4. Major depressive disorder, recurrent: Plan: This is a 43-year-old white female with a long history of mental health treatment with multiple diagnoses reported with inpatient and outpatient services throughout her life. The patient has a history of ADHD, depression, and autism, with recent suicidal ideations and high levels of anxiety. The patient also exhibits obsessive-compulsive tendencies. The patient has a history of substance use, including tobacco, alcohol, and cannabis, all of which ceased five years ago. The patient is currently living alone. We will evaluate for need for medication changes 1. Continue current medications. Increased Rexulti to 2 mg p.o. daily 2. Continue to-15 minute checks, 3.? Encourage individual, group and milieu therapy. 4.? Obtain collateral information. 5. Will look at whether a [facility] setting or some kind of communal/residential facility may serve her better than living alone. Working with social work team on discharge options as there are some facilities considering taking her. Patient has an interview tomorrow and there is a likelihood she will be excepted and we discussed the possibility of discharge after we get that information so that she can prepare for the transition. Patient going to discharge directly to the program tomorrow. Need to identify income source for this first time as she has no money on her card. PDMP PDMP Reviewed: Not Reviewed Involuntary Hold Information 2 Hold Status: Legal Status: 96 Hour Hold Date/Time Hold Expires: 10/01/24 @ 14:17 96 Hour Hold: 96 Hour Involuntary Admission: Yes Attestations NPU 2 Medical Necessity Statement*: Inpatient hospitalization is medically necessary and the clinically appropriate intervention, at this time. We will monitor medications and make changes as indicated. Likely length of stay is 1 day. Coding Level of Care Code Acute Code for [facility] Fwd Diagnoses Generalized anxiety disorder F41.1 History of autism Z86.59 PTSD (post-traumatic stress disorder) F43.10 Major depressive disorder, recurrent F33.9
[2024-10-02 19:52] VITALS: BP 145/93; PULSE 94; RESP 18; TEMP 36.8; O2SAT 96
[2024-10-02 20:45] VITALS: PULSE 95; RESP 18; O2SAT 97
[2024-10-03 06:00] VITALS: BP 140/93; PULSE 94; RESP 18; O2SAT 97
[2024-10-03 14:39] VITALS: BP 140/93; PULSE 94; RESP 18; O2SAT 97
--- NOTE | 2024-10-03 14:42 | DCPLANNER ---
Imm was printed and given to pt and right explained and copy placed in file.
== END 2024-10-03 15:38 | disposition home or self-care (01) | DRG 885 ==
LOC: ER 11:47 → NP 19:30
PROVIDERS: Admitting Provider Psychiatry & Neurology Psychiatry; Emergency Provider Emergency Medicine; PCP Nurse Practitioner Family; Visit Provider Psychiatry & Neurology Psychiatry
DX: F33.9 Major depressive disorder, recurrent, unspecified (principal); Z68.42 Body mass index [BMI] 45.0-49.9, adult; R45.851 Suicidal ideations; F41.1 Generalized anxiety disorder; F43.10 Post-traumatic stress disorder, unspecified; Z86.59 Personal history of other mental and behavioral disorders; E66.01 Morbid (severe) obesity due to excess calories; Z62.810 Personal history of physical and sexual abuse in childhood; J45.909 Unspecified asthma, uncomplicated; K21.9 Gastro-esophageal reflux disease without esophagitis; F84.0 Autistic disorder; E11.40 Type 2 diabetes mellitus with diabetic neuropathy, unspecified; Z79.01 Long term (current) use of anticoagulants; Z79.84 Long term (current) use of oral hypoglycemic drugs
CPT/HCPCS: 36415; 36416; 80053; 80306; 80307; 81001; 81025; 82962; 84443; 85025; 86480; 93005; 94640; 96372; 97150; 97165; 99285; J1815; J7611; J7626; J9999